=== PATIENT | female | born 1945 | race Caucasian/White ===

== ENCOUNTER → 2024-01-04 | Outpatient (CLI) | payer MEDICARE, OTHER ==
[2024-01-04 08:30] LABS: BASOPHILS ABSOLUTE AUTO 0.04 K/mm3 (0.00-0.23); BASOPHILS PERCENT AUTO 0 % (0-2); EOSINOPHILS PERCENT AUTO 2 % (0-6); Hematocrit 37.9 % (33.0-51.0); IMMATURE GRAN ABSOLUTE AUTO 0.07 K/mm3 (0.00-0.10); IMMATURE GRAN PERCENT AUTO 1 % (0-1); LYMPHOCYTES ABSOLUTE AUTO 0.95 K/mm3 (0.84-5.20); LYMPHOCYTES PERCENT AUTO 11 % (21-46); MONOCYTES ABSOLUTE AUTO 0.59 K/mm3 (0.16-1.47); MONOCYTES PERCENT AUTO 7 % (4-13); Mean Corpuscular HGB 27.4 pg (26.0-34.0); Mean Corpuscular HGB Conc 31.7 g/dL (31.5-36.5); Mean Corpuscular Volume 87 fL (80-100); NEUTROPHILS PERCENT AUTO 79 % (41-73); RDW Coefficient Variation 13.2 % (11.7-14.2); RDW Standard Deviation 41.2 fL (35.1-46.3); Red Blood Cell Count 4.38 M/mm3 (3.80-5.20); White Blood Cell Count 8.95 K/mm3 (4.00-11.30)
[2024-01-04 08:36] LABS: Albumin, Blood 3.2 g/dL (3.4-5.0); Albumin/Globulin Ratio 0.6 (0.8-1.8); Bilirubin, Total 0.4 mg/dL (0.1-1.0); Calcium, Blood 9.7 mg/dL (8.5-10.1); Potassium, Blood 4.5 mmol/L (3.5-5.5); Total Protein, Blood 8.2 g/dL (6.4-8.2)
[2024-01-04 08:51] LABS: Platelet Count 251 K/mm3 (150-400)
== END ==
LOC: LAB SHORT 08:20 → LAB 08:20
PROVIDERS: Physician Assistant
DX: I89.0 Lymphedema, not elsewhere classified (principal)
CPT/HCPCS: 80053; 85025

== ENCOUNTER 2024-02-02 20:51 | Inpatient (IN) | payer MEDICARE, OTHER ==
[~2024-02-02] VITALS: Ht 165.1 cm; Wt 147.4 kg
[2024-02-02 23:42] LABS: BASOPHILS ABSOLUTE AUTO 0.04 K/mm3 (0.00-0.23); BASOPHILS PERCENT AUTO 0 % (0-2); EOSINOPHILS PERCENT AUTO 0 % (0-6); Hematocrit 42.8 % (33.0-51.0); Hemoglobin 13.4 g/dL (11.5-16.0); IMMATURE GRAN ABSOLUTE AUTO 0.11 K/mm3 (0.00-0.10); IMMATURE GRAN PERCENT AUTO 1 % (0-1); LYMPHOCYTES ABSOLUTE AUTO 0.76 K/mm3 (0.84-5.20); LYMPHOCYTES PERCENT AUTO 3 % (21-46); MONOCYTES ABSOLUTE AUTO 0.43 K/mm3 (0.16-1.47); MONOCYTES PERCENT AUTO 2 % (4-13); Mean Corpuscular HGB 26.2 pg (26.0-34.0); Mean Corpuscular HGB Conc 31.3 g/dL (31.5-36.5); Mean Corpuscular Volume 84 fL (80-100); Mean Platelet Volume 10.4 fL (9.1-12.4); NEUTROPHILS ABSOLUTE AUTO 21.52 K/mm3 (1.96-9.15); NEUTROPHILS PERCENT AUTO 94 % (41-73); Platelet Count 396 K/mm3 (150-400); RDW Coefficient Variation 14.3 % (11.7-14.2); RDW Standard Deviation 43.3 fL (35.1-46.3); Red Blood Cell Count 5.12 M/mm3 (3.80-5.20); White Blood Cell Count 22.86 K/mm3 (4.00-11.30)
[2024-02-03] MEDS ORDERED: CefTRIAXone Sodium 1,000 MG in NS 100 ML IV ONE (00:10)
[2024-02-03] MEDS ORDERED: Vancomycin HCL 2,000 MG in NS 520 ML IV ONE (00:10)
[2024-02-03 00:12] LABS: Albumin, Blood 3.5 g/dL (3.4-5.0); Albumin/Globulin Ratio 0.6 (0.8-1.8); Bilirubin, Total 1.2 mg/dL (0.1-1.0); Bun/Creatinine Ratio 41.1 (12.0-20.0); Calcium, Blood 11.2 mg/dL (8.5-10.1); Creatinine, Blood 2.53 mg/dL (0.40-1.00); Globulin, Blood 6.2 g/dL (2.2-4.0); Potassium, Blood 5.8 mmol/L (3.5-5.5); Total Protein, Blood 9.7 g/dL (6.4-8.2)
[2024-02-03] MEDS ORDERED: OxyCODONE HCL 5 MG TAB PO PRN (01:40)
[2024-02-03] MEDS ORDERED: Acetaminophen 325 MG TABLET PO PRN (01:45)
[2024-02-03] MEDS ORDERED: FentaNYL Citrate 50 MCG/ML 2 ML Injection IV ONE (02:00)
[2024-02-03] MEDS ORDERED: NS 1,000 ML IV ONE (02:31)
[2024-02-03 02:59] VITALS: BP 131/57
[2024-02-03 03:05] LABS: Hemoglobin 11.7 g/dL (11.5-16.0); Mean Corpuscular HGB 26.8 pg (26.0-34.0); Mean Corpuscular HGB Conc 31.6 g/dL (31.5-36.5); Mean Corpuscular Volume 85 fL (80-100); Mean Platelet Volume 10.1 fL (9.1-12.4); Platelet Count 296 K/mm3 (150-400); RDW Coefficient Variation 14.3 % (11.7-14.2); RDW Standard Deviation 43.9 fL (35.1-46.3); Red Blood Cell Count 4.37 M/mm3 (3.80-5.20); White Blood Cell Count 19.65 K/mm3 (4.00-11.30)
[2024-02-03] MEDS ORDERED: NS 1,000 ML IV SCH (03:30)
[2024-02-03] MEDS ORDERED: Cefepime HCl 2,000 MG in NS 100 ML IV SCH (06:00)
[2024-02-03 07:32] VITALS: BP 124/60
[2024-02-03 08:44] LABS: Albumin, Blood 2.6 g/dL (3.4-5.0); Anion Gap 13 mmol/L (3-11); Blood Urea Nitrogen 98 mg/dL (8-24); Bun/Creatinine Ratio 53.6 (12.0-20.0); CO2, Blood 18 mmol/L (21-32); Calcium, Blood 9.7 mg/dL (8.5-10.1); Chloride, Blood 109 mmol/L (98-108); Creatinine, Blood 1.83 mg/dL (0.40-1.00); Glomerular Filtration Rate 28 (60-); Glucose, Blood 153 mg/dL (70-99); Phosphorus, Blood 3.8 mg/dL (2.5-4.9); Sodium, Blood 135 mmol/L (136-145)
[2024-02-03] MEDS ORDERED: Heparin Sodium,Porcine 5,000 UNIT/0.5 ML SDV SC SCH (09:00)
[2024-02-03] MEDS ORDERED: Lactobacil 2-S.Thermo-Bifido 1 1 Cap PO SCH (09:00)
[2024-02-03 14:05] LABS: Vancomycin, Random 17.5 ug/mL
[2024-02-03] MEDS ORDERED: Vancomycin HCL 2,000 MG in NS 500 ML IV ONE (14:20)
--- NOTE | 2024-02-03 15:01 | NUR ---
VISHNU CARTER FROM [facility] CALLED FOR UPDATE. PT UP TO CHAIR AND ALERT. HUNGRY AND EATING WITH GOOD APPETITE. PER EMMA, PT CANNOT BE DISCHARGED TO HOME TODAY SHE IS LEAVING FOR THE DAY BUT COULD COME BACK IN THE MORNING. THIS NURSE TO LET DR. LOZADA KNOW. BED IN LOW POSITON, CALL LIGHT WITHIN REACH. CHAIR ALARM ON. PT CALLING APPROPRIATELY.
[2024-02-03] MEDS ORDERED: CefTRIAXone Sodium 1,000 MG in NS 100 ML IV SCH (16:00)
[2024-02-03 16:43] VITALS: BP 118/67
--- NOTE | 2024-02-03 17:50 | NUR ---
SHIFT SUMMARY PT AXO X4, PLEASANT AND COOPERATIVE WITH CARE. PT UP TO CHAIR FOR LUNCH. LEGS HEATING ELEMENT WINDER PER DR LOZADA TO MONITOR FOR WEEPING. VERY LITTLE WEEPING THIS SHIFT. PT COMPLAINED OF PAIN, MEDICATED PER EMAR. PT SLEEPING COMFORTABLY AT THIS TIME. IV INFILTRATED WHILE INFUSING VANCO. PHARMACY NOTIFIED. THEY WOULD LIKE TO BE NOTIFIED WITH NEW IV IS PLACED SO THEY CAN RETIME NEXT DOSE. BED IN LOW POSITION, CALL LIGHT WITHIN REACH. PT STATES THAT SHE CANNOT FIND HER GLASSES. THIS NURSE LOOKED IN ROOM AND CANNOT FIND THEM. NOT IN PT'S PURSE. DR LOZADA GIVEN PT'S SPOUSES PHONE NUMBER TO CALL WITH UPDATES
[2024-02-03] MEDS ORDERED: BUME2 PO (17:51)
[2024-02-03] MEDS ORDERED: POTA10T PO (18:06)
[2024-02-03] MEDS ORDERED: PROPRANOLOL HCL80 MG PO (18:07)
[2024-02-03] MEDS ORDERED: BUPRENORPHIN-N1 EAC1 SL (18:08)
[2024-02-03] MEDS ORDERED: Ropinirole HCl0.5 MG PO (18:09)
[2024-02-03] MEDS ORDERED: ELIQUIS2.5 MG PO (18:10)
[2024-02-03] MEDS ORDERED: Buprenorphine HCL/Naloxone HCL 8MG-2MG Tab SL PRN (19:15)
[2024-02-03 19:34] VITALS: BP 106/55
--- NOTE | 2024-02-03 20:46 | NUR ---
2045: Vancomycin 2g infusion resumed into new PIV as directed by pharmacy.
[2024-02-03] MEDS ORDERED: Miconazole Nitrate 2% 85 GM PWD TOP SCH (21:00)
[2024-02-03] MEDS ORDERED: Apixaban 5 MG Tab PO SCH (21:00)
[2024-02-03] MEDS ORDERED: rOPINIRole HCl 1 MG Tab PO SCH (21:00)
[2024-02-04 04:26] VITALS: BP 122/57
--- NOTE | 2024-02-04 05:28 | NUR ---
Patient alert and oriented x3, resting comfortably in bed on room air. Purewick in place, collecting appropriately. Patient repositioned with two person assist overnight.
[2024-02-04 05:35] LABS: BASOPHILS ABSOLUTE AUTO 0.01 K/mm3 (0.00-0.23); BASOPHILS PERCENT AUTO 0 % (0-2); EOSINOPHILS ABSOLUTE AUTO 0.16 K/mm3 (0.00-0.68); EOSINOPHILS PERCENT AUTO 2 % (0-6); Hematocrit 33.5 % (33.0-51.0); Hemoglobin 10.2 g/dL (11.5-16.0); IMMATURE GRAN ABSOLUTE AUTO 0.03 K/mm3 (0.00-0.10); IMMATURE GRAN PERCENT AUTO 0 % (0-1); LYMPHOCYTES ABSOLUTE AUTO 0.69 K/mm3 (0.84-5.20); LYMPHOCYTES PERCENT AUTO 8 % (21-46); MONOCYTES ABSOLUTE AUTO 0.63 K/mm3 (0.16-1.47); MONOCYTES PERCENT AUTO 7 % (4-13); Mean Corpuscular HGB 26.2 pg (26.0-34.0); Mean Corpuscular HGB Conc 30.4 g/dL (31.5-36.5); Mean Corpuscular Volume 86 fL (80-100); Mean Platelet Volume 10.2 fL (9.1-12.4); NEUTROPHILS ABSOLUTE AUTO 7.44 K/mm3 (1.96-9.15); NEUTROPHILS PERCENT AUTO 83 % (41-73); Platelet Count 232 K/mm3 (150-400); RDW Coefficient Variation 14.5 % (11.7-14.2); RDW Standard Deviation 45.1 fL (35.1-46.3); White Blood Cell Count 8.96 K/mm3 (4.00-11.30)
[2024-02-04 05:58] LABS: Albumin, Blood 2.3 g/dL (3.4-5.0); Anion Gap 7 mmol/L (3-11); Blood Urea Nitrogen 65 mg/dL (8-24); Bun/Creatinine Ratio 62.5 (12.0-20.0); CO2, Blood 23 mmol/L (21-32); Calcium, Blood 9.9 mg/dL (8.5-10.1); Chloride, Blood 112 mmol/L (98-108); Creatinine, Blood 1.04 mg/dL (0.40-1.00); Glomerular Filtration Rate 55 (60-); Glucose, Blood 114 mg/dL (70-99); Magnesium, Blood 2.7 mg/dL (1.6-2.4); Phosphorus, Blood 3.3 mg/dL (2.5-4.9); Potassium, Blood 5.1 mmol/L (3.5-5.5); Sodium, Blood 137 mmol/L (136-145); Vancomycin, Random 28.6 ug/mL
[2024-02-04] MEDS ORDERED: Cefepime HCl 2,000 MG in NS 100 ML IV SCH (08:00)
[2024-02-04 08:14] VITALS: BP 119/60
[2024-02-04] MEDS ORDERED: Bumetanide 1 MG Tab PO SCH (09:00)
[2024-02-04] MEDS ORDERED: Petrolatum Ointment 5 gm TOP ONE (13:05)
[2024-02-04] MEDS ORDERED: PETROLATUM TOP SCH (13:33)
[2024-02-04] MEDS ORDERED: Petrolatum/Mineral Oil/Lanolin 1 APPLIC/50 GM Tube TOP SCH (13:48)
[2024-02-04] MEDS ORDERED: NS 100 ML IV ONE (15:53)
[2024-02-04] MEDS ORDERED: Silver Sulfadiazine 1% Cream 400 gm TOP ONE (16:40)
--- NOTE | 2024-02-04 18:31 | NUR ---
SHIFT SUMMARY: PATIENT WORKED WITH PT TODAY, SHE IS A 1 PERSON ASSIST WITH THE WALKER. C/O PAIN IN LOWER EXT. WOUND CARE PERFORMED. GIVING PAIN MEDICATIONS NEEDED; PATIENT PREFERS SUBOXONE VERESUS OTHER PAIN MEDICATION. SHE IS IN BED, EATING DINNER, CALL LIGHT WITHIN REACH, NO SIGNS OR SYMPTOMS OF DISTRESS, PLAN OF CARE ONGOING.
[2024-02-04 20:11] VITALS: BP 137/60
[2024-02-04] MEDS ORDERED: Silver Sulfadiazine 1% Cream 400 gm TOP SCH (21:00)
[2024-02-04] MEDS ORDERED: Petrolatum Ointment 5 gm TOP SCH (21:00)
[2024-02-05 04:00] VITALS: BP 136/55
--- NOTE | 2024-02-05 07:06 | NUR ---
NOC SHIFT SUMMARY WOUND CARE DONE PER MD ORDERS. LEGS ARE STILL OOZING, RED, AND SWOLLEN BUT WOUNDS ARE IMPROVED SINCE ORIGINAL PHOTOS WERE TAKEN.
[2024-02-05 07:41] VITALS: BP 129/59
[2024-02-05] MEDS ORDERED: FentaNYL Citrate 50 MCG/ML 2 ML Injection IV PRN (09:20)
[2024-02-05 15:55] VITALS: BP 117/68
--- NOTE | 2024-02-05 16:35 | NUR ---
NO ACUTE CHANGES THIS SHIFT. PT IS PLEASANT, ALERT AND ORIENTED X4. ABLE TO MAKE NEEDS KNOWN. TREATED PAIN PER EMAR. WOUNDS CLEANSED AND DRESSINGS REPLACED BLE. IV ANTIBIOTICS CONTINUED. PT UP TO CHAIR FOR LUNCH. 1-2 PERSON ASSIST TO BSC DUE TO WEAKNESS AND PAIN.
[2024-02-05] MEDS ORDERED: Vancomycin HCL 2,000 MG in NS 500 ML IV SCH (17:00)
[2024-02-05 20:27] VITALS: BP 134/74
[2024-02-06] MEDS ORDERED: NS 250 ML IV PRN (00:05)
[2024-02-06 06:37] VITALS: BP 124/51
--- NOTE | 2024-02-06 07:21 | NUR ---
END OF SHIFT SUMMARY PT A&OX4. PAIN TO BLE L>R, DECLINED PAIN MED UNTIL PRIOR TO DRESSING CHANGE THIS AM. PUREWICK CHANGED, DOYLE CARE PROVIDED. NO ACUTE EVENTS OVERNIGHT.
[2024-02-06 07:31] VITALS: BP 123/54
[2024-02-06 15:24] VITALS: BP 103/44
--- NOTE | 2024-02-06 18:05 | NUR ---
SHIFT SUMMARY PT AOX4, 1 ASSIST TO THE CHAIR OR BR WITH THE FWW. WOUND CARE DONE TO LOWER EXTREMITIES THIS SHIFT. PT MEDICATED FOR PAIN PER THE EMAR. NO ACUTE EVENTS. PG IS POSITIONAL. REPOSITIONED THROUGHOUT THE SHIFT. CALL LIGHT WITHIN REACH, BED LOCKED AND IN THE LOWEST POSITION. WILL REPORT TO ONCOMING NURSE.
[2024-02-06 19:31] VITALS: BP 111/60
[2024-02-07 05:53] VITALS: BP 153/74
[2024-02-07 06:23] LABS: BASOPHILS ABSOLUTE AUTO 0.02 K/mm3 (0.00-0.23); BASOPHILS PERCENT AUTO 0 % (0-2); EOSINOPHILS ABSOLUTE AUTO 0.28 K/mm3 (0.00-0.68); EOSINOPHILS PERCENT AUTO 5 % (0-6); Hematocrit 32.7 % (33.0-51.0); Hemoglobin 10.1 g/dL (11.5-16.0); IMMATURE GRAN ABSOLUTE AUTO 0.06 K/mm3 (0.00-0.10); IMMATURE GRAN PERCENT AUTO 1 % (0-1); LYMPHOCYTES ABSOLUTE AUTO 1.04 K/mm3 (0.84-5.20); LYMPHOCYTES PERCENT AUTO 17 % (21-46); MONOCYTES ABSOLUTE AUTO 0.68 K/mm3 (0.16-1.47); MONOCYTES PERCENT AUTO 11 % (4-13); Mean Corpuscular HGB 26.4 pg (26.0-34.0); Mean Corpuscular HGB Conc 30.9 g/dL (31.5-36.5); Mean Corpuscular Volume 86 fL (80-100); Mean Platelet Volume 9.9 fL (9.1-12.4); NEUTROPHILS ABSOLUTE AUTO 3.95 K/mm3 (1.96-9.15); NEUTROPHILS PERCENT AUTO 66 % (41-73); Platelet Count 183 K/mm3 (150-400); RDW Coefficient Variation 14.2 % (11.7-14.2); RDW Standard Deviation 44.3 fL (35.1-46.3); Red Blood Cell Count 3.82 M/mm3 (3.80-5.20); White Blood Cell Count 6.03 K/mm3 (4.00-11.30)
[2024-02-07 06:41] LABS: Albumin, Blood 2.1 g/dL (3.4-5.0); Anion Gap 8 mmol/L (3-11); Blood Urea Nitrogen 26 mg/dL (8-24); Bun/Creatinine Ratio 38.9 (12.0-20.0); CO2, Blood 25 mmol/L (21-32); Calcium, Blood 9.1 mg/dL (8.5-10.1); Chloride, Blood 111 mmol/L (98-108); Creatinine, Blood 0.67 mg/dL (0.40-1.00); Glomerular Filtration Rate 89 (60-); Glucose, Blood 109 mg/dL (70-99); Magnesium, Blood 2.1 mg/dL (1.6-2.4); Phosphorus, Blood 2.4 mg/dL (2.5-4.9); Potassium, Blood 4.4 mmol/L (3.5-5.5); Sodium, Blood 140 mmol/L (136-145)
--- NOTE | 2024-02-07 06:42 | NUR ---
NOC SHIFT SUMMARY DRESSING CHANGED AT 0600. PREMEDICATED WITH FENTANYL. PT TOLERATED WELL. LEGS LOOK MUCH BETTER THAN WHEN I DRESSED HER WOUNDS 2 DAYS AGO. LESS REDNESS, LESS SWELLING. LESS DRAINAGE.
[2024-02-07 07:37] VITALS: BP 115/62
[2024-02-07] MEDS ORDERED: Sodium Phosphate Mono/Dibasic 250 MG Tab PO ONE (09:45)
[2024-02-07 15:14] VITALS: BP 127/76
[2024-02-07 16:26] LABS: Vancomycin, Trough 15.7 ug/mL (5.0-10.0)
[2024-02-07] MEDS ORDERED: Dose Adjust by Pharmacy XX STA (16:35)
--- NOTE | 2024-02-07 16:49 | NUR ---
SHIFT SUMMARY PT AOX4, 1 ASSIST TO THE CHAIR OR BR. UP TO THE CHAIR FOR LUNCH. MEDICATED FOR PAIN PER THE EMAR. PLAN TO CHANGE THE DRESSING BEFORE THE SHIFT CHANGE. PG IS POSITIONAL BUT DOES DRAW. PT CALLS AND MAKES HER NEEDS KNOWN. REPOSITIONED THROUGHOUT THE SHIFT. CALL LIGHT WITHIN REACH, BED LOCKED AND IN THE LOWEST POSITION. WILL REPORT TO ONCOMING NURSE.
[2024-02-07 19:24] VITALS: BP 131/55
[2024-02-08 02:41] VITALS: BP 138/66
[2024-02-08 05:00] LABS: BASOPHILS ABSOLUTE AUTO 0.01 K/mm3 (0.00-0.23); BASOPHILS PERCENT AUTO 0 % (0-2); EOSINOPHILS ABSOLUTE AUTO 0.38 K/mm3 (0.00-0.68); EOSINOPHILS PERCENT AUTO 6 % (0-6); Hemoglobin 9.8 g/dL (11.5-16.0); IMMATURE GRAN ABSOLUTE AUTO 0.13 K/mm3 (0.00-0.10); IMMATURE GRAN PERCENT AUTO 2 % (0-1); LYMPHOCYTES ABSOLUTE AUTO 0.98 K/mm3 (0.84-5.20); LYMPHOCYTES PERCENT AUTO 15 % (21-46); MONOCYTES PERCENT AUTO 11 % (4-13); Mean Corpuscular HGB 26.3 pg (26.0-34.0); Mean Corpuscular HGB Conc 30.6 g/dL (31.5-36.5); Mean Corpuscular Volume 86 fL (80-100); NEUTROPHILS ABSOLUTE AUTO 4.24 K/mm3 (1.96-9.15); NEUTROPHILS PERCENT AUTO 66 % (41-73); Platelet Count 206 K/mm3 (150-400); RDW Coefficient Variation 14.2 % (11.7-14.2); RDW Standard Deviation 44.1 fL (35.1-46.3); Red Blood Cell Count 3.72 M/mm3 (3.80-5.20); White Blood Cell Count 6.44 K/mm3 (4.00-11.30)
[2024-02-08 05:20] LABS: Albumin, Blood 2.1 g/dL (3.4-5.0); Anion Gap 8 mmol/L (3-11); Blood Urea Nitrogen 22 mg/dL (8-24); CO2, Blood 25 mmol/L (21-32); Calcium, Blood 9.2 mg/dL (8.5-10.1); Chloride, Blood 109 mmol/L (98-108); Creatinine, Blood 0.67 mg/dL (0.40-1.00); Glomerular Filtration Rate 89 (60-); Glucose, Blood 115 mg/dL (70-99); Phosphorus, Blood 2.7 mg/dL (2.5-4.9); Potassium, Blood 4.4 mmol/L (3.5-5.5); Sodium, Blood 138 mmol/L (136-145)
--- NOTE | 2024-02-08 06:43 | NUR ---
MATHEMATICAL TECHNICIAN SUMMARY WOUND CARE DONE AT 0600. CLEANED WITH SALINE, DRIED, COVERED OPEN SPOTS WITH CALCIUM ALGINATE, APPLIED THICK LAYER OF AQUAPHOR TO INTACT SKIN, WRAPPED WITH CAST PADDING, AND YOLANDA WRAPPED. PT WAS PREMEDICATED WITH FENTANYL AND TOLERATED PROCEDURE WELL.
[2024-02-08 07:42] VITALS: BP 127/67
--- NOTE | 2024-02-08 12:37 | NUR ---
WOUND CARE NOTE: WOUND CARE COMPLETED PER PROVIDER ORDERS. PROVIDER AT THE BS TO WITNESS THE WOUND. NEW PICTURES OBTAINED AND PLACED IN THE CHART.
[2024-02-08] MEDS ORDERED: SILVADENE20 G1 TOP (14:23)
[2024-02-08] MEDS ORDERED: SULFAMETHOXAZO1 EAC1 PO (14:24)
[2024-02-08] MEDS ORDERED: OXAYDO5 M1 PO (14:25)
--- NOTE | 2024-02-08 17:58 | NUR ---
DISCHARGE NOTE PT DISCHARGED TO HOME, PICKED UP BY HER . PG REMOVED. DISCHARGE INFORMATION AND EDUCATION PROVIDED. MEDICATED FOR PAIN THIS SHIFT. MEDICATIONS FAXED TO THE PHARMACY OF HER CHOICE.
[2024-02-08] MEDS ORDERED: Amoxicillin/Clavulanate K 875 MG Tab PO SCH (21:00)
== END 2024-02-08 17:53 | disposition home health service (06) | DRG 872 ==
LOC: ER 20:51 → MEDS 02-03 01:38
PROVIDERS: Emergency Medicine; Family Medicine; Student in an Organized Health Care Education/Training Program; ADMIT Student in an Organized Health Care Education/Training Program
DX: A41.9 Sepsis, unspecified organism (principal); E87.20 Acidosis, unspecified; L03.116 Cellulitis of left lower limb; L03.115 Cellulitis of right lower limb; N17.9 Acute kidney failure, unspecified; D62 Acute posthemorrhagic anemia; Z68.43 Body mass index [BMI] 50.0-59.9, adult; L97.829 Non-pressure chronic ulcer of other part of left lower leg with unspecified severity; L97.819 Non-pressure chronic ulcer of other part of right lower leg with unspecified severity; E87.1 Hypo-osmolality and hyponatremia; R65.20 Severe sepsis without septic shock; E66.01 Morbid (severe) obesity due to excess calories; I89.0 Lymphedema, not elsewhere classified; I87.2 Venous insufficiency (chronic) (peripheral); T45.515A Adverse effect of anticoagulants, initial encounter; D64.89 Other specified anemias; E87.5 Hyperkalemia; R73.9 Hyperglycemia, unspecified; N18.31 Chronic kidney disease, stage 3a; Z22.322 Carrier or suspected carrier of Methicillin resistant Staphylococcus aureus; Z86.711 Personal history of pulmonary embolism
CPT/HCPCS: 36415; 71045; 80053; 80069; 80202; 83605; 83735; 83880; 84484; 85025; 85027; 87040; 93005; 93010; 94762; 96365; 96375; 97110; 97110-CQ; 97116; 97162; 97165; 97530; 97535; 99285-25; A9270; C1751; J0692; J0696; J1644; J3010; J3370; J7030; J7040; J7050

== ENCOUNTER 2024-03-17 10:19 | Inpatient (IN) | payer MEDICARE, OTHER ==
[~2024-03-17] VITALS: Ht 165.1 cm; Wt 129.0 kg
[~2024-03-17 10:19] MED LIST: BUME2 PO; BUPRENORPHIN-N1 EAC1 SL; ELIQUIS2.5 MG PO; OXAYDO5 M1 PO; POTA10T PO; PROPRANOLOL HCL80 MG PO; Ropinirole HCl0.5 MG PO; SILVADENE20 G1 TOP; SULFAMETHOXAZO1 EAC1 PO
[2024-03-17 11:35] LABS: BASOPHILS ABSOLUTE AUTO 0.03 K/mm3 (0.00-0.23); BASOPHILS PERCENT AUTO 0 % (0-2); EOSINOPHILS PERCENT AUTO 2 % (0-6); Hematocrit 36.8 % (33.0-51.0); Hemoglobin 11.8 g/dL (11.5-16.0); IMMATURE GRAN ABSOLUTE AUTO 0.11 K/mm3 (0.00-0.10); IMMATURE GRAN PERCENT AUTO 1 % (0-1); LYMPHOCYTES PERCENT AUTO 10 % (21-46); MONOCYTES ABSOLUTE AUTO 1.05 K/mm3 (0.16-1.47); MONOCYTES PERCENT AUTO 8 % (4-13); Mean Corpuscular HGB 26.3 pg (26.0-34.0); Mean Corpuscular HGB Conc 32.1 g/dL (31.5-36.5); Mean Corpuscular Volume 82 fL (80-100); Mean Platelet Volume 10.1 fL (9.1-12.4); NEUTROPHILS ABSOLUTE AUTO 10.65 K/mm3 (1.96-9.15); NEUTROPHILS PERCENT AUTO 80 % (41-73); Platelet Count 267 K/mm3 (150-400); RDW Coefficient Variation 14.9 % (11.7-14.2); RDW Standard Deviation 44.6 fL (35.1-46.3); Red Blood Cell Count 4.49 M/mm3 (3.80-5.20); White Blood Cell Count 13.34 K/mm3 (4.00-11.30)
[2024-03-17 11:49] LABS: C-REACTIVE PROTEIN, EXT RANGE 6.14 mg/dL (0.000-0.300)
[2024-03-17 11:57] LABS: Albumin/Globulin Ratio 0.5 (0.8-1.8); Bilirubin, Total 0.6 mg/dL (0.1-1.0); Bun/Creatinine Ratio 58.2 (12.0-20.0); Calcium, Blood 10.4 mg/dL (8.5-10.1); Creatinine, Blood 1.53 mg/dL (0.40-1.00); Globulin, Blood 5.7 g/dL (2.2-4.0); Potassium, Blood 6.1 mmol/L (3.5-5.5); Total Protein, Blood 8.7 g/dL (6.4-8.2)
[2024-03-17] MEDS ORDERED: Sodium Bicarb 8.4% 1 MEQ/ML 50 ML Vial IV ONE (12:10)
[2024-03-17] MEDS ORDERED: Calcium Gluconate 10% 100 MG/ML INJ IV ONE (12:10)
[2024-03-17] MEDS ORDERED: Insulin Regular 100 Unit/ML 1ML Dose IV ONE (12:10)
[2024-03-17] MEDS ORDERED: Albuterol 2.5 MG/3 ML VIAL INH SCH (12:10)
[2024-03-17] MEDS ORDERED: Dextrose 50% 50 ML Syringe IV ONE (12:10)
[2024-03-17] MEDS ORDERED: Cefepime HCl 2,000 MG in NS 100 ML IV ONE (12:25)
[2024-03-17] MEDS ORDERED: Dextrose 50% 50 ML Vial IV ONE (12:30)
[2024-03-17] MEDS ORDERED: NS 1,000 ML IV SCH (12:30)
[2024-03-17] MEDS ORDERED: Vancomycin HCL 2,500 MG in NS 500 ML IV ONE (12:55)
[2024-03-17 13:38] LABS: Calcium, Ionized (POC) 1.27 mmol/L (1.10-1.46); Chloride (POC) 99 mmol/L (98-108); Creatinine (POC) 1.7 mg/dL (0.6-1.0); Glucose (ISTAT POC) 215 mg/dL (70-99); Hemoglobin (POC) 11.2 g/dL (12.0-16.0); Potassium (POC) 5.2 mmol/L (3.5-5.5); Sodium (POC) 131 mmol/L (135-148); Total CO2 (POC) 23 mmol/L (21-32)
[2024-03-17 15:30] LABS: Bun/Creatinine Ratio 59.7 (12.0-20.0); Calcium, Blood 10.1 mg/dL (8.5-10.1); Creatinine, Blood 1.39 mg/dL (0.40-1.00); Potassium, Blood 4.7 mmol/L (3.5-5.5)
[2024-03-17 16:00] VITALS: BP 110/48
[2024-03-17] MEDS ORDERED: OxyCODONE HCL 5 MG TAB PO PRN (16:20)
[2024-03-17] MEDS ORDERED: DiphenhydrAMINE HCL 25 MG Cap PO ONE (16:20)
--- NOTE | 2024-03-17 17:01 | NUR ---
REPORT RECEIEVED VERIFIED PT A/O VSS IS AWAITING DISCHARGE REFUSED TO GET OUT OF BED AND STATED SHE WOULD LATER. MD INTO SEE PT AND DISCHARGE ORDERS GIVEN, VALERIE TO MERCHANDISE COLLECTOR AT 1300. 1130 DAUGHTER AT BEDSIDE WITH LUNCH AND WILL WAIT WITH PT. 1430 VALERIE HERE FOR PT. PT HAD NO ISSUES GETTING OUT OF BED TO BSC NOR WHEELCHAIR. PT DISCHARGED
--- NOTE | 2024-03-17 19:19 | NUR ---
report received verified. admit done, pt assisted to bed and pics were taken of multiple inflamed areas on body, purwic in place to protect skin in bobby area. iv access is limited so charge made aware of need for powerglide. pt very anxious and was assisted to edge of bed to stand, also was medicated for pain and irritation to legs. pt uses call light appropriatly.
[2024-03-17] MEDS ORDERED: NS 250 ML IV PRN (20:00)
[2024-03-17] MEDS ORDERED: Apixaban 5 MG Tab PO SCH (21:00)
[2024-03-17 21:34] VITALS: BP 116/55
[2024-03-17] MEDS ORDERED: Cefepime HCl 2,000 MG in NS 100 ML IV SCH (22:00)
[2024-03-18] MEDS ORDERED: FentaNYL Citrate 50 MCG/ML 2 ML Injection IV PRN (00:40)
[2024-03-18 02:59] VITALS: BP 142/63
--- NOTE | 2024-03-18 05:00 | NUR ---
SHIFT SUMMARY 79 YR F ADMITTED ON 03/17/24. FULL CODE. NO ACUTE CHANGES THIS SHIFT. PT C/O SEVERE PAIN IN BLE. PAIN MEDS IN EMAR WERE NOT AFFECTIVE SO HOSPITALIST WAS CONTACTED AND ORDER FOR FENTANYL WAS OBTAINED. PT STATES IT DID NOT HELP. SHE SAT ON THE EDGE OF THE BED MULTIPLE TIMES IN AN ATTEMPT TO ALLEVIATE THE PAIN IN HER LEGS. SHE STATED MULTIPLE TIMES THAT SHE JUST WANTS TO GO HOME. BLE ARE WEEPING AND THERE ARE NO WOUND CARE ORDERS. PUREWIK IN PLACE AND WORKED WELL THIS SHIFT. BED IN LOW POSITION AND CALL LIGHT IN REACH. WILL CONTINUE TO MONITOR.
[2024-03-18 07:22] VITALS: BP 101/73
[2024-03-18 08:31] LABS: BASOPHILS ABSOLUTE AUTO 0.04 K/mm3 (0.00-0.23); BASOPHILS PERCENT AUTO 0 % (0-2); EOSINOPHILS ABSOLUTE AUTO 0.01 K/mm3 (0.00-0.68); EOSINOPHILS PERCENT AUTO 0 % (0-6); Hematocrit 33.1 % (33.0-51.0); Hemoglobin 10.6 g/dL (11.5-16.0); IMMATURE GRAN ABSOLUTE AUTO 0.17 K/mm3 (0.00-0.10); IMMATURE GRAN PERCENT AUTO 1 % (0-1); LYMPHOCYTES ABSOLUTE AUTO 0.88 K/mm3 (0.84-5.20); LYMPHOCYTES PERCENT AUTO 4 % (21-46); MONOCYTES ABSOLUTE AUTO 0.84 K/mm3 (0.16-1.47); MONOCYTES PERCENT AUTO 4 % (4-13); Mean Corpuscular HGB 26.6 pg (26.0-34.0); Mean Corpuscular Volume 83 fL (80-100); Mean Platelet Volume 10.1 fL (9.1-12.4); NEUTROPHILS ABSOLUTE AUTO 18.67 K/mm3 (1.96-9.15); NEUTROPHILS PERCENT AUTO 91 % (41-73); Platelet Count 193 K/mm3 (150-400); RDW Coefficient Variation 15.2 % (11.7-14.2); RDW Standard Deviation 45.9 fL (35.1-46.3); Red Blood Cell Count 3.99 M/mm3 (3.80-5.20); White Blood Cell Count 20.61 K/mm3 (4.00-11.30)
[2024-03-18 08:36] LABS: Albumin, Blood 2.5 g/dL (3.4-5.0); Albumin/Globulin Ratio 0.5 (0.8-1.8); Bilirubin, Total 0.8 mg/dL (0.1-1.0); Calcium, Blood 9.8 mg/dL (8.5-10.1); Creatinine, Blood 1.15 mg/dL (0.40-1.00); Potassium, Blood 4.5 mmol/L (3.5-5.5); Total Protein, Blood 7.5 g/dL (6.4-8.2)
[2024-03-18 15:55] VITALS: BP 99/48
[2024-03-18] MEDS ORDERED: Vancomycin HCL 1,250 MG in NS 250 ML IV SCH (16:00)
--- NOTE | 2024-03-18 17:54 | NUR ---
NO ACUTE CHANGES, CEFEPIME AND VANCO INFUSED, ALERT AND ORIENTED TO ALL, CLEARLY MAKES NEEDS KNOWN, WORKED WITH PT/OT. ELLIOTT LEGS WEEPING, ELEVATED ON PILLOWS WHEN IN BED, OOB IN CHAIR FOR MEALS, FRIENDS VISITED TODAY. CALL LIGHT WITH IN REACH, WILL RELAY TO PM RN
[2024-03-18 20:34] VITALS: BP 124/88
[2024-03-19 04:50] VITALS: BP 122/63
[2024-03-19 06:04] LABS: BASOPHILS ABSOLUTE AUTO 0.03 K/mm3 (0.00-0.23); BASOPHILS PERCENT AUTO 0 % (0-2); EOSINOPHILS ABSOLUTE AUTO 0.29 K/mm3 (0.00-0.68); EOSINOPHILS PERCENT AUTO 4 % (0-6); Hematocrit 31.1 % (33.0-51.0); Hemoglobin 9.6 g/dL (11.5-16.0); IMMATURE GRAN ABSOLUTE AUTO 0.04 K/mm3 (0.00-0.10); IMMATURE GRAN PERCENT AUTO 1 % (0-1); LYMPHOCYTES ABSOLUTE AUTO 0.69 K/mm3 (0.84-5.20); LYMPHOCYTES PERCENT AUTO 9 % (21-46); MONOCYTES ABSOLUTE AUTO 0.56 K/mm3 (0.16-1.47); MONOCYTES PERCENT AUTO 7 % (4-13); Mean Corpuscular HGB 25.9 pg (26.0-34.0); Mean Corpuscular HGB Conc 30.9 g/dL (31.5-36.5); Mean Corpuscular Volume 84 fL (80-100); Mean Platelet Volume 10.3 fL (9.1-12.4); NEUTROPHILS ABSOLUTE AUTO 6.35 K/mm3 (1.96-9.15); NEUTROPHILS PERCENT AUTO 80 % (41-73); Platelet Count 166 K/mm3 (150-400); RDW Coefficient Variation 15.2 % (11.7-14.2); RDW Standard Deviation 46.5 fL (35.1-46.3); White Blood Cell Count 7.96 K/mm3 (4.00-11.30)
[2024-03-19 06:21] LABS: Bun/Creatinine Ratio 52.6 (12.0-20.0); Calcium, Blood 9.6 mg/dL (8.5-10.1); Creatinine, Blood 0.95 mg/dL (0.40-1.00); Potassium, Blood 4.2 mmol/L (3.5-5.5)
[2024-03-19 07:46] VITALS: BP 107/60
[2024-03-19] MEDS ORDERED: Cefepime HCl 2,000 MG in NS 100 ML IV SCH (08:00)
[2024-03-19 14:30] VITALS: BP 103/54
[2024-03-19 15:39] LABS: Vancomycin, Trough 21.5 ug/mL (5.0-10.0)
--- NOTE | 2024-03-19 18:20 | NUR ---
NO ACUTE CHANGES, ALERT AND OREINTED TO ALL, MEDICATED FOR PAIN THROUGH OUT THE DAY, CALL LIGHT WITH IN REACH, TELE DISCONTINUED TODAY, OOB FOR EACH MEAL, WORKED WITH PT TODAY, DENIES NAUSEA AND VOMITING. 98% ON RA, CALL LIGHT WITH IN REACH, WILL RELAY TO PM RN
[2024-03-19 19:44] VITALS: BP 116/60
[2024-03-19] MEDS ORDERED: Vancomycin HCL 1,000 MG in NS 250 ML IV SCH (22:00)
[2024-03-20 03:55] VITALS: BP 128/62
--- NOTE | 2024-03-20 04:35 | NUR ---
SHIFT SUMMARY: KATHERINE IS A&OX4. VSS, NO ACUTE EVENTS OVERNIGHT. SHE IS TOLERATING PO INTAKE WELL, REPORTS ADEQUATE PAIN CONTROL WITH MEDICATIONS PER MAR, AND USES THE CALL LIGHT APPROPRIATELY. DRESSINGS TO BLE C/D&I. IV TO RIGHT HAND PATENT, SALINE LOCKED. SHE IS A 1-2 PERSON ASSIST TO THE BEDSIDE RECLINER WITH THE FWW AND GAIT BELT. SHE IS LYING IN BED WITH THE CALL LIGHT IN REACH, BED IN LOWEST POSITION. SHE HAS RESTED QUIETLY WITH HER EYES CLOSED FOR THE MAJORITY OF THE SHIFT. WILL GIVE REPORT TO DAY SHIFT RN.
[2024-03-20 05:03] LABS: BASOPHILS ABSOLUTE AUTO 0.03 K/mm3 (0.00-0.23); BASOPHILS PERCENT AUTO 1 % (0-2); EOSINOPHILS ABSOLUTE AUTO 0.33 K/mm3 (0.00-0.68); EOSINOPHILS PERCENT AUTO 6 % (0-6); Hematocrit 30.1 % (33.0-51.0); Hemoglobin 9.1 g/dL (11.5-16.0); IMMATURE GRAN ABSOLUTE AUTO 0.03 K/mm3 (0.00-0.10); IMMATURE GRAN PERCENT AUTO 1 % (0-1); LYMPHOCYTES ABSOLUTE AUTO 0.91 K/mm3 (0.84-5.20); LYMPHOCYTES PERCENT AUTO 17 % (21-46); MONOCYTES ABSOLUTE AUTO 0.71 K/mm3 (0.16-1.47); MONOCYTES PERCENT AUTO 13 % (4-13); Mean Corpuscular HGB 25.7 pg (26.0-34.0); Mean Corpuscular HGB Conc 30.2 g/dL (31.5-36.5); Mean Corpuscular Volume 85 fL (80-100); Mean Platelet Volume 10.4 fL (9.1-12.4); NEUTROPHILS ABSOLUTE AUTO 3.37 K/mm3 (1.96-9.15); NEUTROPHILS PERCENT AUTO 63 % (41-73); Platelet Count 170 K/mm3 (150-400); RDW Coefficient Variation 15.1 % (11.7-14.2); RDW Standard Deviation 47.3 fL (35.1-46.3); Red Blood Cell Count 3.54 M/mm3 (3.80-5.20); White Blood Cell Count 5.38 K/mm3 (4.00-11.30)
[2024-03-20 05:33] LABS: Albumin/Globulin Ratio 0.4 (0.8-1.8); Bilirubin, Total 0.2 mg/dL (0.1-1.0); Bun/Creatinine Ratio 46.9 (12.0-20.0); Calcium, Blood 9.5 mg/dL (8.5-10.1); Creatinine, Blood 0.73 mg/dL (0.40-1.00); Globulin, Blood 4.5 g/dL (2.2-4.0); Potassium, Blood 4.4 mmol/L (3.5-5.5); Total Protein, Blood 6.5 g/dL (6.4-8.2)
[2024-03-20 07:22] VITALS: BP 124/55
--- NOTE | 2024-03-20 14:47 | NUR ---
PT BILATERAL LOWER EX. WOUND DRESSING CHANGED.
[2024-03-20 15:19] VITALS: BP 133/55
--- NOTE | 2024-03-20 17:40 | NUR ---
PT A&OX4 AND ANSWERS QUESTIONS APPROPRIATELY. PT IS EXPERIENCING HIGH LEVELS OF PAIN DUE TO BILATERAL LOWER EX. RANGING FROM 7-9 ON THE PAIIN SCALE. MEDICATE PER EMAR. PT RECEIVED SCHEDULED MEDICATIONS. PT RECEIVED BATH AND DRESSING CHANGE TODAY. VSS, NO COMPLAINTS OF CP/PRESSURE OR SOB. NO ACUTE EVENTS AT THIS TIME. PT LEFT IN A POSITION OF SAFETY WITH FALL PRECAUTIONS IN PLACE. PT REPOSITIONED WITH MINIMAL ASSISTANCE. CALL LIGHT IN REACH.
[2024-03-20 20:21] VITALS: BP 121/47
[2024-03-20] MEDS ORDERED: Vancomycin HCL 1,250 MG in NS 250 ML IV SCH (22:00)
[2024-03-21 04:00] VITALS: BP 143/60
[2024-03-21 05:36] LABS: BASOPHILS ABSOLUTE AUTO 0.04 K/mm3 (0.00-0.23); BASOPHILS PERCENT AUTO 1 % (0-2); EOSINOPHILS ABSOLUTE AUTO 0.35 K/mm3 (0.00-0.68); EOSINOPHILS PERCENT AUTO 5 % (0-6); Hematocrit 33.4 % (33.0-51.0); Hemoglobin 10.1 g/dL (11.5-16.0); IMMATURE GRAN ABSOLUTE AUTO 0.14 K/mm3 (0.00-0.10); IMMATURE GRAN PERCENT AUTO 2 % (0-1); LYMPHOCYTES ABSOLUTE AUTO 1.12 K/mm3 (0.84-5.20); LYMPHOCYTES PERCENT AUTO 15 % (21-46); MONOCYTES ABSOLUTE AUTO 0.64 K/mm3 (0.16-1.47); MONOCYTES PERCENT AUTO 9 % (4-13); Mean Corpuscular HGB Conc 30.2 g/dL (31.5-36.5); Mean Corpuscular Volume 86 fL (80-100); Mean Platelet Volume 10.3 fL (9.1-12.4); NEUTROPHILS ABSOLUTE AUTO 5.09 K/mm3 (1.96-9.15); NEUTROPHILS PERCENT AUTO 69 % (41-73); Platelet Count 193 K/mm3 (150-400); RDW Coefficient Variation 15.1 % (11.7-14.2); RDW Standard Deviation 47.4 fL (35.1-46.3); Red Blood Cell Count 3.88 M/mm3 (3.80-5.20); White Blood Cell Count 7.38 K/mm3 (4.00-11.30)
[2024-03-21 06:09] LABS: Bun/Creatinine Ratio 35.1 (12.0-20.0); Calcium, Blood 10.2 mg/dL (8.5-10.1); Creatinine, Blood 0.77 mg/dL (0.40-1.00); Potassium, Blood 4.6 mmol/L (3.5-5.5)
[2024-03-21 07:23] VITALS: BP 129/49
--- NOTE | 2024-03-21 07:44 | NUR ---
SHIFT SUMMARY PT IS A&OX4. VSS ON RA. C/O PAIN 10/10 IN HER BLE AND HIPS, MEDICATED PER EMAR WITH 5 MG PO OXYCODONE AND 50 MCG IV FENTANYL. PAIN THEN WENT DOWN TO AN 8/10. WHEN ASKED WHAT THE PT DOES AT HOME FOR HER PAIN SHE STATES SHE TAKES BUPRENORPHINE. PT HAS NOT RECEIVED HOME MEDICATIONS SINCE HER ADMIT. I RELAYED THIS TO DAY RN IN MORNING REPORT. TOLERATING A REGULAR DIET, AND ASKING FOR SNACKS. BLE DRESSINGS C/D/I. WICKING SYSTEM DRAINING LARGE AMOUNTS OF CLEAR, YELLOW URINE. NO BM THIS SHIFT. PT SAT UP IN RECLINER FOR A FEW HOURS LAST NIGHT. X1 ASSIST WITH FWW. BED IN LOWEST POSITION, CALL LIGHT WITHIN REACH.
[2024-03-21 14:29] VITALS: BP 134/64
[2024-03-21] MEDS ORDERED: Silver Sulfadiazine 1% Cream 25 APPLIC/25 GM Tube TOP SCH (16:35)
--- NOTE | 2024-03-21 19:26 | NUR ---
SHIFT SUMMARY PT IS A&O X3 AND ASSIST X2 WITH FWW. PT HAS WORKED WITH THERAPY THIS MORNING. BILAT LEG DSG CHANGED. PT HAS RECEIVED PRN PAIN MEDICATION THIS SHIFT D/T PAIN TO BILAT LEGS AND BACK. PT HAS VOICED CONCERN IN WANTED TO LEAVE LATE IN THE SHIFT. NOC HOSPITALIST NOTIFIED AND IS ON WAY UP TO SPEAK WITH PT. BILAT LEG DSG CHANGED THIS SHIFT.
[2024-03-21 19:45] VITALS: BP 117/75
[2024-03-21] MEDS ORDERED: HYDROmorphone HCl/Pf 1MG SYR IV ONE (20:00)
[2024-03-21] MEDS ORDERED: OxyCODONE HCL 5 MG TAB PO SCH (20:00)
[2024-03-21] MEDS ORDERED: rOPINIRole HCl 1 MG Tab PO SCH (21:00)
[2024-03-21 22:20] LABS: Vancomycin, Trough 15.3 ug/mL (5.0-10.0)
[2024-03-22] MEDS ORDERED: Piperacillin/Tazobactam Sod 3.375 GM in NS 100 ML IV SCH
[2024-03-22 05:20] VITALS: BP 112/50
[2024-03-22 07:59] VITALS: BP 105/49
--- NOTE | 2024-03-22 08:53 | NUR ---
SHIFT SUMMARY PT IS A&OX4. PT WANTING TO LEAVE AMA D/T NOT BEING MEDICATED WELL ENOUGH TO CONTROL HER PAIN. VSS ON RA. C/O PAIN 04/28 IN BLE, MEDICATED PER EMAR WITH SCHEDULED 5MG PO OXYCODONE Q4, ALSO ONE TIME DOSE OF 1MG IV DILAUDID. PT SITTING IN RECLINER AT BEGINNING OF SHIFT. PT WAS INCONTINENT OF BOWEL AND BLADDER WHILE SITTING IN THE CHAIR. PT DID NOT CALL TO USE BSC. CLEANED PT UP AND GOT HER BACK TO BED FOR THE NOC. BLE DRESSINGS C/D/I. PT INCONTINENT T/O NOC. PT HAS VERY EXCORIATED LABIAL FOLDS R/T BEING INCONTINENT. THIS RN REMINDED PT HOW IMPORTANT IT IS FOR HER SKIN TO GET UP TO BSC TO VOID. BED IN LOWEST POSITION, CALL LIGHT WITHIN REACH.
[2024-03-22] MEDS ORDERED: Propranolol HCL 80 MG CAPCR PO SCH (09:00)
[2024-03-22] MEDS ORDERED: Bumetanide 1 MG Tab PO SCH (09:00)
[2024-03-22 15:13] VITALS: BP 121/60
--- NOTE | 2024-03-22 18:04 | NUR ---
SHIFT SUMMARY PT CONT LEVEL OF CARE. PT REMAINS A&O X4 AND ASSIST X1 WITH FWW. PHYSICIAN ORDER A WOUND CULTURE TO PT BLE WOUNDS. CULTURE WAS COLLECTED AND SENT TO LAB AWAITING RESULTS. DSG CHANGED TO BILAT LEGS THIS SHIFT. PT WORKED WITH THERAPY THIS SHIFT. THERAPY STATED THAT THEY WOULD LIKE PT TO GET UP AND SIT IN CHAIR FOR AT LEAST ONE MEAL PER DAY. PT EDUCATED ON THERAPYS PLAN AND STATED THAT SHE COULD DO THAT. PT HAS UTILIZED BEDSIDE COMMODE THIS SHIFT. PHYSICIAN CHANGED IV ABT THIS SHIFT AND STATED THAT HE PLANS ON KEEPING PT FOR AT LEAST TWO MORE DAYS. PT NOTED TO CONT TO HAVE PAIN TO BLE AND HAS BEEN TX PER EMAR.
[2024-03-22 20:02] VITALS: BP 140/45
[2024-03-22 21:17] LABS: Vancomycin, Trough 16.8 ug/mL (5.0-10.0)
[2024-03-23 04:21] VITALS: BP 119/45
[2024-03-23 04:23] VITALS: BP 131/51
--- NOTE | 2024-03-23 07:51 | NUR ---
SHIFT SUMMARY PT IS A&OX4. NO ACUTE CHANGES OR EVENTS THIS SHIFT. VSS ON RA. MEDICATED FOR PAIN PER EMAR. TOLERATING A REGULAR DIET WITH 1800 ML FLUID RESTRICTION. BED IN LOWEST POSITION, CALL LIGHT WITHIN REACH. 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
[2024-03-23 08:16] VITALS: BP 146/72
[2024-03-23 15:19] VITALS: BP 159/72
--- NOTE | 2024-03-23 20:06 | NUR ---
SHIFT SUMMARY- PT ALERT AND ORIENTED TO SELF AND PLACE, CONFUSED AT TIMES. ANSWERS QUESTIONS APPROPRIATELY. PT IN BED WITH HER CALL LIGHT AT THE TIME OF SHIFT CHANGE. PT WAS TRANSFERED TO ROOM 306, WICH IS A LIFT ROOM AND THE PT IS A LIFT PT. PLAN IS FOR THE PT TO DC TO [facility], HOWEVER HER DC IS DELAYED D/T A POSSITIVE COVID TEST. REPORT COMPLETED WITH NIGHT RN. NO S&S OF DISTRESS AT THE TIME OF PT TRANSFER.
--- NOTE | 2024-03-23 20:10 | NUR ---
SHIFT SUMMARY- PT IS ALERT AND ORIENTED. SHE IS 2PA TO THE BS. PT HAS SEVERE PAIN IN HER BLE. DRESSINGS CHANGED THIS EVENING. DR LOPEZ WANTED THE PT SPOUSE TO DEMONSTRAIGHT THAT HE CAN CHANGE HER DRESSINGS. PT SPOUSE IS A DIALYSIS PT AND WAS FEELINIG SICK TODAY, SO HE DID NOT COME IN. THIS RN CHANGED THE DRESSING WITH THE ASSISTANCE FOR THE GARAGE DOOR TECHNICIAN AND A LIFT. THERE IS CONCERN TO IF HE CAN MANAGE THE DRESSING CHANGES THE PT NEEDS. PT TOLD STAFF SHE WAS GOING TO GET UP AND WALK OUT OF HERE. SHE WAS INFORMED THAT WOULD BE ILL ADVISED, BUT SHE CAN LEAVE AMA IF SHE WANTS TO. PT STATES SHE WAS JUST IN PAIN. SHE HAS SCHEDULED PAIN MEDS Q4. BEDSIDE REPORT COMPLETED WITH NIGHT RN. PT IN BED, CALL LIGHT IN REACH NO S&S OF DISTRESS NOTED.
[2024-03-23 20:48] VITALS: BP 122/46
[2024-03-23] MEDS ORDERED: Lactobacil 2-S.Thermo-Bifido 1 1 Cap PO SCH (21:00)
--- NOTE | 2024-03-24 04:12 | NUR ---
SHIFT SUMMARY NO ACUTE EVENTS DURING THIS SHIFT. PT HAS REDDENED SKIN UNDER BREASTS, GROIN, COCCYX, AND PANNUS SINCE ADMISSION. SKIN COLOR IMPROVING UNDER THE BREASTS SINCE ADMISSION. PT REPORTS VERY PAINFUL WHEN CLEANED/WIPED. POWDER APPLIED. THIS DIVERSITY MANAGER CALLED ON-CALL HOSPITALIST , T-ORDER RECEIVED FOR NYSTATIN POWDER, AND NYSTATIN CREAM Q8HRS. PT IS ON SCHEDULED PO ROXYCODONE 5MG, AND REPORTS EFFECTIVE FOR PAIN IN LE'S. LE'S OPEN TO AIR AND ELEVATED WITH PILLOWS. [id number] IN BED T/O THIS SHIFT. IV ABX INFUSED ORDERED. BED AT THE LOWEST POSITION, CALL LIGHT WITHIN REACH. PT ABLE TO MAKE HER NEEDS KNOWN.
[2024-03-24 04:22] VITALS: BP 124/58
--- NOTE | 2024-03-24 04:25 | NUR ---
NEW T-ORDER RECEIVED FROM ON-CALL HOSPITALIST : "NYSTATIN POWDER Q8HRS PRN." AND "NYSTATIN CREAM Q8HRS PRN." NO OTHER ORDERS AT THIS TIME.
[2024-03-24] MEDS ORDERED: Nystatin 100,000 Unit/GM CREAM 15 GM TOP PRN (05:40)
[2024-03-24] MEDS ORDERED: Miconazole Nitrate 2% 85 GM PWD TOP PRN (05:40)
[2024-03-24 08:04] VITALS: BP 133/54
[2024-03-24 08:39] LABS: Creatinine, Blood 0.77 mg/dL (0.40-1.00)
[2024-03-24 15:47] VITALS: BP 118/42
[2024-03-24 20:01] VITALS: BP 106/38
--- NOTE | 2024-03-24 20:20 | NUR ---
SHIFT SUMMARY- PT ALERT AND ORIENTED. PT GOT UP IN THE CHAIR TODAY AND WAS ABLE TO SIT UP FOR MOST OF THE DAY. DRESSING CHANGE COMPLETED THIS AFTERNOON. PT WILL REQUIRE DAILY DRESSING CHANGES WHEN SHE IS DISCHARGED. PT THOUGHT ABOUT IT AND DECIDED [facility] WHEN SHE IS READY TO DC. PT IS IN BED, CALL LIGHT IN REACH NO S&S OF DISTRESS NOTED AT THE TIME OF BEDSIDE REPORT. IV ABX INFUSING THROUGH THE LLEFT ARM PG.
[2024-03-25 03:52] VITALS: BP 140/58
--- NOTE | 2024-03-25 04:38 | NUR ---
SHIFT SUMMARY PATIENT HAD NO ACUTE CHANGES. AXOX 3 AND TWO ASSIST TO BSC. POWERGLIDE KACIE INTACT POSITIONAL. IV ABX INFUSED. DENIES CHEST PAIN, SOB, AND N/V. REPORTED BLE PAIN AND SHEDULE OXYCODONE GIVEN PER EMAR. NYSTATIN CREME APPLIED TO PANNUS AND FOLDS. DRESSING TO BLE INTACT. CALL LIGHT IN REACH. BED IN LOWEST POSITION. WILL CONTINUE TO MONITOR UNTIL DAY SHIFT NURSE ASSUMES CARE.
[2024-03-25 08:03] VITALS: BP 129/51
[2024-03-25] MEDS ORDERED: Silver Sulfadiazine 1% Cream 400 gm TOP SCH (09:00)
[2024-03-25] MEDS ORDERED: SULTRIDS PO (11:33)
--- NOTE | 2024-03-25 11:47 | NUR ---
WOUND CARE PERFORMED DAILY WOUND CARE COMPLETED. PT TOLLERATED THE WOUND CARE BETTER TODAY WHEN COMPARED TO YESTERDAY. DRESSINGS HAVE BEEN CHANGED DAILY BY THIS RN. THE WOUND BED APPEARS TO BE RED AND BEEFY. WOUND DRESSING REMOVED AND THE WOUND CLEANSED WITH STERILE WATER AND DRIED WITH GAUZE. PER EMAR APPLIED SILVADINE CREAM PLACED XEROFORM THEN ABD DRESSING, ROLLED GAUZE AND YOLANDA WRAP TO HOLD DRESSING. PT HAS PRN POWDER AND CREAM FOR THE RASHY AREAS. PT HAD A FULL SPOUNGE BATH (NOT INCLUDING HAIR) THEN THE PROBLEM AREAS WERE CLEANED AND DRIED. CREAM APPLIED TO THE MORE MOIST GROIN AREAS (SOME OPEN SPOTS) AND POWDER WAS USED FOR THE CLOSED AND MORE DRY RED AREAS UNDER THE BREASTS, AND LEG FOLDS. DR LOPEZ CAME TO SEEE THE PT WHILE THE DRESSING CHANGE WAS BEING COMPLETED. HE IS DISCHARGING THE PT TO SNF. PT HAS ACCEPTANCE AND BED ASSIGNMENT WAITING FOR A TRANSPORT TIME. WILL CALL REPORT TO [facility].
--- NOTE | 2024-03-25 14:29 | NUR ---
DISCHARGE NOTE- PT DISCHARGED TO [facility]. CALLED AND GAVE TELEPHONE REPORT TO THEM. PT WAS SENT WITH WOUND CARE SUPPLIES CLEARLY LABELED. PT WAS TAKEN VIA WC TRANSPORT TO . NO S&S OF DISTRESS NOTED AT THE TIME OF DISCHARGE.
== END 2024-03-25 14:15 | DRG 603 ==
LOC: ER 10:19 → MEDS 15:13 → ENPENDDIS 03-25 11:14 → MEDS 03-25 14:15
PROVIDERS: Physician Assistant; ADMIT Internal Medicine
DX: L03.115 Cellulitis of right lower limb (principal); Z16.29 Resistance to other single specified antibiotic; E87.1 Hypo-osmolality and hyponatremia; N17.9 Acute kidney failure, unspecified; E87.20 Acidosis, unspecified; L97.929 Non-pressure chronic ulcer of unspecified part of left lower leg with unspecified severity; L97.919 Non-pressure chronic ulcer of unspecified part of right lower leg with unspecified severity; Z68.43 Body mass index [BMI] 50.0-59.9, adult; L03.116 Cellulitis of left lower limb; I89.0 Lymphedema, not elsewhere classified; L98.8 Other specified disorders of the skin and subcutaneous tissue; E87.5 Hyperkalemia; N18.9 Chronic kidney disease, unspecified; I87.2 Venous insufficiency (chronic) (peripheral); E66.9 Obesity, unspecified; B95.62 Methicillin resistant Staphylococcus aureus infection as the cause of diseases classified elsewhere; Z86.711 Personal history of pulmonary embolism; Z79.01 Long term (current) use of anticoagulants
CPT/HCPCS: 36415; 80047; 80048; 80053; 80202; 82565; 83605; 83735; 84520; 85014; 85025; 86140; 87040; 87070; 87075; 87077; 87147; 87186; 87205; 93005; 93010; 94644; 94664; 96361; 96365; 96375; 97110; 97162; 97165; 97530; 97535; 99285-25; A9270; C1751; J0692; J1170; J1815; J2543; J3010; J3370; J7030; J7040; J7050; J7799

== ENCOUNTER 2024-06-23 10:17 | Day surgery (SDC) | payer MEDICARE, OTHER ==
[~2024-06-23 10:17] MED LIST changes: +SULTRIDS PO
== END 2024-06-23 23:00 | disposition home or self-care (01) ==
LOC: WOUND 10:17
DX: I89.0 Lymphedema, not elsewhere classified (principal); I87.313 Chronic venous hypertension (idiopathic) with ulcer of bilateral lower extremity; L97.812 Non-pressure chronic ulcer of other part of right lower leg with fat layer exposed; L97.822 Non-pressure chronic ulcer of other part of left lower leg with fat layer exposed; I87.2 Venous insufficiency (chronic) (peripheral); I73.9 Peripheral vascular disease, unspecified
CPT/HCPCS: G0463

== ENCOUNTER 2024-06-30 01:40 | Day surgery (SDC) | payer MEDICARE, OTHER | END 2024-06-30 23:00 | disposition home or self-care (01) | LOC: WOUND 01:40 | DX: I87.313 Chronic venous hypertension (idiopathic) with ulcer of bilateral lower extremity (principal); L97.812 Non-pressure chronic ulcer of other part of right lower leg with fat layer exposed; L97.822 Non-pressure chronic ulcer of other part of left lower leg with fat layer exposed; L97.222 Non-pressure chronic ulcer of left calf with fat layer exposed; I87.2 Venous insufficiency (chronic) (peripheral); I73.9 Peripheral vascular disease, unspecified; I89.0 Lymphedema, not elsewhere classified | CPT/HCPCS: G0463 ==

== ENCOUNTER 2024-07-06 05:03 | Day surgery (SDC) | payer MEDICARE, OTHER | END 2024-07-06 23:00 | disposition home or self-care (01) | LOC: WOUND 05:03 | DX: I87.313 Chronic venous hypertension (idiopathic) with ulcer of bilateral lower extremity (principal); L97.812 Non-pressure chronic ulcer of other part of right lower leg with fat layer exposed; L97.822 Non-pressure chronic ulcer of other part of left lower leg with fat layer exposed; I89.0 Lymphedema, not elsewhere classified; S81.802D Unspecified open wound, left lower leg, subsequent encounter; X58.XXXD Exposure to other specified factors, subsequent encounter; I87.2 Venous insufficiency (chronic) (peripheral); I73.9 Peripheral vascular disease, unspecified | CPT/HCPCS: G0463 ==

== ENCOUNTER 2024-07-19 14:06 | Inpatient (IN) | payer MEDICARE, OTHER ==
[~2024-07-19] VITALS: Ht 154.9 cm; Wt 138.0 kg
[2024-07-19 16:09] LABS: BASOPHILS ABSOLUTE AUTO 0.03 K/mm3 (0.00-0.23); BASOPHILS PERCENT AUTO 0 % (0-2); EOSINOPHILS ABSOLUTE AUTO 0.03 K/mm3 (0.00-0.68); EOSINOPHILS PERCENT AUTO 0 % (0-6); Hematocrit 42.9 % (33.0-51.0); Hemoglobin 13.1 g/dL (11.5-16.0); IMMATURE GRAN PERCENT AUTO 1 % (0-1); LYMPHOCYTES ABSOLUTE AUTO 1.17 K/mm3 (0.84-5.20); LYMPHOCYTES PERCENT AUTO 9 % (21-46); MONOCYTES ABSOLUTE AUTO 1.05 K/mm3 (0.16-1.47); MONOCYTES PERCENT AUTO 8 % (4-13); Mean Corpuscular HGB 24.9 pg (26.0-34.0); Mean Corpuscular HGB Conc 30.5 g/dL (31.5-36.5); Mean Corpuscular Volume 81 fL (80-100); Mean Platelet Volume 9.4 fL (9.1-12.4); NEUTROPHILS ABSOLUTE AUTO 10.29 K/mm3 (1.96-9.15); NEUTROPHILS PERCENT AUTO 81 % (41-73); Platelet Count 392 K/mm3 (150-400); RDW Coefficient Variation 14.7 % (11.7-14.2); Red Blood Cell Count 5.27 M/mm3 (3.80-5.20); White Blood Cell Count 12.67 K/mm3 (4.00-11.30)
[2024-07-19 16:43] LABS: Albumin, Blood 3.2 g/dL (3.4-5.0); Albumin/Globulin Ratio 0.5 (0.8-1.8); Bilirubin, Total 0.3 mg/dL (0.1-1.0); Bun/Creatinine Ratio 36.1 (12.0-20.0); Calcium, Blood 10.8 mg/dL (8.5-10.1); Creatinine, Blood 1.69 mg/dL (0.40-1.00); Globulin, Blood 6.2 g/dL (2.2-4.0); Potassium, Blood 5.4 mmol/L (3.5-5.5); Total Protein, Blood 9.4 g/dL (6.4-8.2)
[2024-07-19] MEDS ORDERED: Vancomycin HCL 2,000 MG in NS 520 ML IV ONE (19:35)
[2024-07-19] MEDS ORDERED: NS 1,000 ML IV SCH ×2 (19:35→21:00)
[2024-07-19] MEDS ORDERED: Ondansetron HCl 2 MG / ML 2ML Vial IV ONE (20:25)
[2024-07-19] MEDS ORDERED: FentaNYL Citrate 50 MCG/ML 2 ML Injection IV ONE (20:25)
[2024-07-19] MEDS ORDERED: FLU VACC TS2024-25(6MOS UP)/PF 45 MCG/0.5 ML SYRINGE IM SCH (20:30)
[2024-07-19] MEDS ORDERED: Acetaminophen 325 MG TABLET PO PRN (20:30)
[2024-07-19] MEDS ORDERED: Ondansetron HCl 2 MG / ML 2ML Vial IV PRN ×2 (20:30)
[2024-07-19] MEDS ORDERED: OxyCODONE HCL 5 MG TAB PO PRN (20:35)
[2024-07-19] MEDS ORDERED: Docusate Sodium 100 MG Cap PO SCH (21:00)
[2024-07-19] MEDS ORDERED: Apixaban 5 MG Tab PO SCH (21:00)
[2024-07-19] MEDS ORDERED: rOPINIRole HCl 1 MG Tab PO SCH (21:00)
[2024-07-19] MEDS ORDERED: Naloxone HCl 0.4MG / ML 1ML Vial IV PRN (21:45)
[2024-07-19] MEDS ORDERED: FentaNYL Citrate 50 MCG/ML 2 ML Injection IV PRN (21:50)
[2024-07-19] MEDS ORDERED: Buprenorphine HCL/Naloxone HCL 8MG-2MG Tab SL PRN (23:05)
[2024-07-19 23:52] VITALS: BP 151/55
[2024-07-19 23:55] VITALS: BP 111/76
[2024-07-20 00:02] VITALS: BP 82/44
[2024-07-20 00:04] VITALS: BP 111/76
[2024-07-20] MEDS ORDERED: NS 500 ML IV ONE (04:35)
[2024-07-20 05:47] LABS: BASOPHILS ABSOLUTE AUTO 0.02 K/mm3 (0.00-0.23); BASOPHILS PERCENT AUTO 0 % (0-2); EOSINOPHILS PERCENT AUTO 0 % (0-6); Hematocrit 31.7 % (33.0-51.0); Hemoglobin 9.8 g/dL (11.5-16.0); IMMATURE GRAN ABSOLUTE AUTO 0.06 K/mm3 (0.00-0.10); IMMATURE GRAN PERCENT AUTO 0 % (0-1); LYMPHOCYTES ABSOLUTE AUTO 0.27 K/mm3 (0.84-5.20); LYMPHOCYTES PERCENT AUTO 2 % (21-46); MONOCYTES PERCENT AUTO 4 % (4-13); Mean Corpuscular HGB 25.1 pg (26.0-34.0); Mean Corpuscular HGB Conc 30.9 g/dL (31.5-36.5); Mean Corpuscular Volume 81 fL (80-100); NEUTROPHILS ABSOLUTE AUTO 13.46 K/mm3 (1.96-9.15); NEUTROPHILS PERCENT AUTO 93 % (41-73); Platelet Count 325 K/mm3 (150-400); RDW Coefficient Variation 14.7 % (11.7-14.2); RDW Standard Deviation 43.4 fL (35.1-46.3); Red Blood Cell Count 3.91 M/mm3 (3.80-5.20); White Blood Cell Count 14.41 K/mm3 (4.00-11.30)
[2024-07-20 06:07] VITALS: BP 99/60
[2024-07-20 06:10] LABS: Magnesium, Blood 2.6 mg/dL (1.6-2.4)
[2024-07-20 06:24] LABS: BAND PERCENT MAN 1 % (0-8); BASOPHILS PERCENT MAN 0 % (0-2); EOSINOPHILS PERCENT MAN 0 % (0-6); LYMPHOCYTES ABSOLUTE MAN 0.14 K/mm3 (0.84-5.20); LYMPHOCYTES PERCENT MAN 1 % (21-46); METAMYELOCYTE ABSOLUTE MAN 0.28 K/mm3 (0.00-0.00); METAMYELOCYTE PERCENT MAN 2 % (0-0); MONOCYTES ABSOLUTE MAN 0.43 K/mm3 (0.16-1.47); MONOCYTES PERCENT MAN 3 % (4-13); NEUTROPHILS ABSOLUTE MAN 13.54 K/mm3 (1.96-9.15); SEG NEUTROPHILS PERCENT MAN 93 % (41-73); TOTAL CELLS COUNTED 100
[2024-07-20 06:34] LABS: Albumin, Blood 2.5 g/dL (3.4-5.0); Albumin/Globulin Ratio 0.6 (0.8-1.8); Bilirubin, Total 0.6 mg/dL (0.1-1.0); Bun/Creatinine Ratio 38.5 (12.0-20.0); Calcium, Blood 9.5 mg/dL (8.5-10.1); Creatinine, Blood 1.43 mg/dL (0.40-1.00); Globulin, Blood 4.5 g/dL (2.2-4.0); Potassium, Blood 4.8 mmol/L (3.5-5.5)
--- NOTE | 2024-07-20 06:49 | NUR ---
SHIFT SUMMARY PT ARRIVED 2324. ADMITTED FOR CELLULITIS OF BLE. 4+ PITTING EDEMA, WEEPING PROFUSLEY. PT ABLE TO AMBULATE WITH FWW AT BL. PT COMPLAINED OF PAIN. MEDICATED PER EMAR. DR. DALTON CALLED D/T PT NOT PERFUSING WELL, ELEVATED BP AND HR. 500ML BOLUS ORDERED AND LACTIC ACID ORDERED WITH MORNING LABS STAT. DR. DALTON TO FOLLOW UP WITH PT PENDING RESULTS OF BLOOD WORK. CONTINUING TO MONITOR. CALL LIGHT WITHIN REACH. WILL RELAY TO DAY SHIFT.
[2024-07-20] MEDS ORDERED: Potassium Chloride 10 Meq Tablet SA PO SCH (08:30)
[2024-07-20] MEDS ORDERED: Silver Sulfadiazine 1% Cream 25 APPLIC/25 GM Tube TOP SCH (09:00)
[2024-07-20] MEDS ORDERED: Miconazole Nitrate 2% 85 GM PWD TOP SCH (09:00)
[2024-07-20] MEDS ORDERED: Bumetanide 1 MG Tab PO SCH (09:00)
[2024-07-20 15:32] VITALS: BP 105/55
[2024-07-20] MEDS ORDERED: Bumetanide 0.25 MG/ML 4ML ViaL IV SCH (17:00)
--- NOTE | 2024-07-20 19:32 | NUR ---
REPORT RECEIVCED VERIFIED, A/O AND IN A LOT OF PAIN, LEGS VERY SWOLLEN WITH SIGNIFICANT DRAINAGE. SILVER SORB TO OPEN AREAS AND PT JORGE LUIS WELL. DR JONES AT BEDSIDE, PHOTOS TAKEN OF LEGS AND ABD FOLD AND WERE PLACED IN CHART, PT WAS ASSISTED TO BSC AND DID WELL BUT WAS IN A LOT OF PAIN. PURWIC WAS PLACED TO KEEP PT DRY AND PREVENT BREAKDOWN, PT AGAIN covered FOR PAIN. PT AWARE OF NEEDING TO MOVE AND TO KEEP NURTION UP FOR HEAL, PT FEED SELF DINNER AND WILL ATTEMPT TO GET OOB TOMORROW AND IN A CHAIR, CALL LIGHT WITHIN REACH. PT MAKES NEEDS KNOWN.
[2024-07-20] MEDS ORDERED: NS 250 ML IV PRN (19:50)
[2024-07-20] MEDS ORDERED: Vancomycin HCL 1,250 MG in NS 250 ML IV SCH (20:00)
[2024-07-20] MEDS ORDERED: Vancomycin HCL 1,000 MG in NS 250 ML IV SCH (20:00)
[2024-07-20] MEDS ORDERED: CefTRIAXone Sodium 1,000 MG in NS 100 ML IV SCH (21:00)
[2024-07-20 21:01] VITALS: BP 119/60
[2024-07-21 05:51] VITALS: BP 125/74
--- NOTE | 2024-07-21 06:56 | NUR ---
SHIFT SUMMARY AT START OF SHIFT, PT COMPLAINING OF PAIN IN BLE. PT HAS PUREWIC IN PLACE THIS SHIFT AND IS VOIDING CONSISTENTLY. BLE WEEPING PROFUSELY STILL. PT ABLE TO GET NYSTATIN POWDER APPLIED X2 TODAY. SILVER CREAM APPLIED TO LEGS. PT VANCO RUNNING IN EVENING. ROCEPHIN TO START AT COMPLETION OF VANCO ADMINISTRATION. PT MEDICATED FOR PAIN. 2214, PT WOKE AFTER HAVING DREAM SHE FELL OUT OF BED AND HAD BIT HER UPPER LIP ON THE RIGHT SIDE. PT UP TO [facility] APPROX 0600. ABLE TO VOID. BEDDING AND PAPER CHUX CHANGED. PT EXPRESSED DESIRE TO AMBULATE MORE OFTEN DURING THE DAY TODAY. PT MEDICATED FOR PAIN AND REPOSITIONED WITH EDEMATOUS EXTREMETIES RAISED ABOVE HEART LEVEL. PT'S GOLD RING ON LEFT HAND REMOVED WITH LUBRICANT AND STORED IN SPECIMIN CUP AND PLACED INTO PT'S PURSE.
[2024-07-21 08:24] VITALS: BP 119/55
[2024-07-21] MEDS ORDERED: Propranolol HCL 80 MG CAPCR PO SCH (09:00)
[2024-07-21 09:52] LABS: BASOPHILS ABSOLUTE AUTO 0.02 K/mm3 (0.00-0.23); BASOPHILS PERCENT AUTO 0 % (0-2); EOSINOPHILS ABSOLUTE AUTO 0.02 K/mm3 (0.00-0.68); EOSINOPHILS PERCENT AUTO 0 % (0-6); Hematocrit 32.1 % (33.0-51.0); IMMATURE GRAN ABSOLUTE AUTO 0.07 K/mm3 (0.00-0.10); IMMATURE GRAN PERCENT AUTO 1 % (0-1); LYMPHOCYTES ABSOLUTE AUTO 0.52 K/mm3 (0.84-5.20); LYMPHOCYTES PERCENT AUTO 4 % (21-46); MONOCYTES ABSOLUTE AUTO 0.73 K/mm3 (0.16-1.47); MONOCYTES PERCENT AUTO 5 % (4-13); Mean Corpuscular HGB 24.8 pg (26.0-34.0); Mean Corpuscular HGB Conc 31.2 g/dL (31.5-36.5); Mean Corpuscular Volume 80 fL (80-100); Mean Platelet Volume 9.5 fL (9.1-12.4); NEUTROPHILS ABSOLUTE AUTO 12.57 K/mm3 (1.96-9.15); NEUTROPHILS PERCENT AUTO 90 % (41-73); Platelet Count 352 K/mm3 (150-400); RDW Standard Deviation 43.8 fL (35.1-46.3); Red Blood Cell Count 4.03 M/mm3 (3.80-5.20); White Blood Cell Count 13.93 K/mm3 (4.00-11.30)
[2024-07-21 10:23] LABS: Albumin, Blood 2.3 g/dL (3.4-5.0); Albumin/Globulin Ratio 0.5 (0.8-1.8); Bilirubin, Total 0.3 mg/dL (0.1-1.0); Calcium, Blood 10.4 mg/dL (8.5-10.1); Creatinine, Blood 1.11 mg/dL (0.40-1.00); Globulin, Blood 5.1 g/dL (2.2-4.0); Potassium, Blood 4.3 mmol/L (3.5-5.5); Total Protein, Blood 7.4 g/dL (6.4-8.2)
[2024-07-21] MEDS ORDERED: Apixaban 5 MG Tab PO SCH (12:35)
[2024-07-21 15:52] VITALS: BP 95/55
[2024-07-21 17:30] VITALS: BP 103/54
--- NOTE | 2024-07-21 18:00 | NUR ---
SHIFT SUMMARY A/OX4, COOPERATIVE WITH CARE. REMAINING IN BED TODAY DUE TO SWELLING AND SIGNIFICANT PAIN TO BLE, HANDS, AND SHOULDERS. REPOSITIONED TOLERATED BY PT, Q2H. PT TREATED FOR PAIN PER EMAR WITH GOOD RESULTS, PT FOUND SLEEPING WHEN RN ENTERS TO REASSESS PAIN LEVELS. CARE TO BLE COMPLETED, SILVER SULFADIAZINE CREAM APPLIED AND LEGS WRAPPED. DIURESING CONTINUED PER MD ORDERS. FAIR ORAL INTAKE. PT CURRENTLY RESTING IN HOSPITAL BED WITH BED IN LOWEST POSITION AND CALL LIGHT WITHIN REACH.
[2024-07-21 19:28] VITALS: BP 102/47
[2024-07-21 19:58] LABS: Vancomycin, Trough 17.3 ug/mL (5.0-10.0)
[2024-07-22 04:30] VITALS: BP 90/54
[2024-07-22 05:56] LABS: BASOPHILS ABSOLUTE AUTO 0.01 K/mm3 (0.00-0.23); BASOPHILS PERCENT AUTO 0 % (0-2); EOSINOPHILS ABSOLUTE AUTO 0.19 K/mm3 (0.00-0.68); EOSINOPHILS PERCENT AUTO 2 % (0-6); Hematocrit 31.4 % (33.0-51.0); Hemoglobin 9.8 g/dL (11.5-16.0); IMMATURE GRAN ABSOLUTE AUTO 0.04 K/mm3 (0.00-0.10); IMMATURE GRAN PERCENT AUTO 1 % (0-1); LYMPHOCYTES ABSOLUTE AUTO 0.95 K/mm3 (0.84-5.20); LYMPHOCYTES PERCENT AUTO 11 % (21-46); MONOCYTES ABSOLUTE AUTO 0.62 K/mm3 (0.16-1.47); MONOCYTES PERCENT AUTO 7 % (4-13); Mean Corpuscular HGB Conc 31.2 g/dL (31.5-36.5); Mean Corpuscular Volume 80 fL (80-100); Mean Platelet Volume 9.5 fL (9.1-12.4); NEUTROPHILS ABSOLUTE AUTO 6.85 K/mm3 (1.96-9.15); NEUTROPHILS PERCENT AUTO 79 % (41-73); Platelet Count 334 K/mm3 (150-400); RDW Standard Deviation 43.8 fL (35.1-46.3); Red Blood Cell Count 3.92 M/mm3 (3.80-5.20); White Blood Cell Count 8.66 K/mm3 (4.00-11.30)
--- NOTE | 2024-07-22 06:07 | NUR ---
SHIFT SUMMARY PT ALERT AND ORIENTED TIMES 4. PT WAS RECEPTIVE TO CARE, TOOK HS MEDICATION AND IS APPROPRIATE WITH CALL LIGHT. PT ABLE TO MAKE NEEDS KNOWN. PT ADMITTED FOR CELLULITUS BILATERAL LOWER EXTREMITIES. PT HAS PUREWICK. PT TAKES FENT BED IN LOW POSITION, CALL LIGHT WITHIN REACH, RAILS TIMES 2.
[2024-07-22 06:21] LABS: Albumin, Blood 2.1 g/dL (3.4-5.0); Albumin/Globulin Ratio 0.5 (0.8-1.8); Bilirubin, Total 0.2 mg/dL (0.1-1.0); Bun/Creatinine Ratio 54.4 (12.0-20.0); Calcium, Blood 10.1 mg/dL (8.5-10.1); Creatinine, Blood 1.03 mg/dL (0.40-1.00); Globulin, Blood 4.5 g/dL (2.2-4.0); Potassium, Blood 3.9 mmol/L (3.5-5.5); Total Protein, Blood 6.6 g/dL (6.4-8.2)
[2024-07-22 08:23] VITALS: BP 109/70
--- NOTE | 2024-07-22 11:21 | NUR ---
TELE PLACED ON PT, NORMAL SINUS RHYTHM AT 89 BPM. CONTINUOUS PULSE OX PLACED ON PT, PT SAYING 98% ON 2 L/MIN VIA NC AT TIME OF PLACEMENT.
--- NOTE | 2024-07-22 15:23 | NUR ---
RN ATTEMPTED PHONE CALL TO PT PROVIDER RE UNCONTROLLED PAIN WITH CURRENT ORDERS. NO ANSWER, RN REQUESTED CALLBACK.
[2024-07-22 16:39] VITALS: BP 98/58
--- NOTE | 2024-07-22 16:59 | NUR ---
SHIFT SUMMARY PT REMAINS A/0X4, VSS, ABLE TO MAKE NEEDS KNOWN. GOOD APPETITE. PT REMAINING IN BED DUE TO UNCONTROLLED PAIN. RN ATTEMPTED TO CONTACT PROVIDER REGARDING PT PAIN, AWAITING RETURN CALL. NEW IV PLACED IN R HAND AND IV IN LEFT AC DC['C DUE TO LEAKING. CARE PROVIDED TO BLE PER ORDERS. PT MEDICATED PER EMAR FOR PAIN. BED BATH COMPLETED TODAY, PURWICK REMAINS IN PLACE. PT RESTING IN HOSPITAL BED WITH BED IN LOWEST POSITION AND CALL LIGHT WITHIN REACH. DAUGHTER AT BEDSIDE.
--- NOTE | 2024-07-22 17:29 | NUR ---
THIS RN CONTACTED PT PROVIDER VIA PHONE REGARDING UNCONTROLLED PAIN, NO NEW ORDERS RECIEVED.
[2024-07-22 19:50] VITALS: BP 113/56
[2024-07-23 04:01] VITALS: BP 125/50
--- NOTE | 2024-07-23 05:13 | NUR ---
SHIFT SUMMARY PT ALERT ORIENTED X4 ABLE TO VERBALIZE NEEDS REMAINS ON BEDREST REMAINS ON VANCO AND ROCEPHIN ORDERED FOR CELLULITIS OF LLE. VSS ON RA SATTING AT 97%. C/O GENERALIZED PAIN MEDICATED WITH FENTANYL AND OXY ORDERED FOR PAIN SHE HAS A ORDER FOR A ECHO TO BE DONE TODAY. SHES KEPT TURNED AND REPOSITIONED BY STAFF [place] INTACT DRAINING YELLOW URINE. HER BLE REMAIN RED AND LT ONE HAS DRAINAGE. CONTINUES WITH SILVADENE CREAM TO AREA. BLE REMAIN VERY EDEMATOUS. SHES IN BED AT THIS TIME WITH CALL LIGHT IN REACH
[2024-07-23 07:53] VITALS: BP 136/59
--- NOTE | 2024-07-23 08:28 | NUR ---
pt laying in bed moaning, sleepy, states she has 10/10 pain in legs and back, a/ox4, cooperative with care, follows commands well, lungs are clear, dim in bases, resp even and unlabored, on r/a, no cough noted, hrr, 4+ edema noted to b/l le, cap refill <3 sec, vs stable, afebrile, piv to r hand, site is clear and patent, btx4, reports reg bm's, purwick in place for urine, skin has scabs and redness to b/l le, maew, very weak, hands shake, jayla, call light in reach.
[2024-07-23 09:35] LABS: BASOPHILS ABSOLUTE AUTO 0.04 K/mm3 (0.00-0.23); BASOPHILS PERCENT AUTO 0 % (0-2); EOSINOPHILS ABSOLUTE AUTO 0.49 K/mm3 (0.00-0.68); EOSINOPHILS PERCENT AUTO 5 % (0-6); Hematocrit 37.2 % (33.0-51.0); Hemoglobin 11.5 g/dL (11.5-16.0); IMMATURE GRAN ABSOLUTE AUTO 0.06 K/mm3 (0.00-0.10); IMMATURE GRAN PERCENT AUTO 1 % (0-1); LYMPHOCYTES ABSOLUTE AUTO 1.19 K/mm3 (0.84-5.20); LYMPHOCYTES PERCENT AUTO 11 % (21-46); MONOCYTES ABSOLUTE AUTO 0.55 K/mm3 (0.16-1.47); MONOCYTES PERCENT AUTO 5 % (4-13); Mean Corpuscular HGB 24.7 pg (26.0-34.0); Mean Corpuscular HGB Conc 30.9 g/dL (31.5-36.5); Mean Corpuscular Volume 80 fL (80-100); Mean Platelet Volume 9.3 fL (9.1-12.4); NEUTROPHILS ABSOLUTE AUTO 8.27 K/mm3 (1.96-9.15); NEUTROPHILS PERCENT AUTO 78 % (41-73); Platelet Count 448 K/mm3 (150-400); RDW Coefficient Variation 14.9 % (11.7-14.2); RDW Standard Deviation 43.5 fL (35.1-46.3); Red Blood Cell Count 4.66 M/mm3 (3.80-5.20)
[2024-07-23 09:55] LABS: Albumin, Blood 2.4 g/dL (3.4-5.0); Albumin/Globulin Ratio 0.4 (0.8-1.8); Bilirubin, Total 0.3 mg/dL (0.1-1.0); Bun/Creatinine Ratio 52.1 (12.0-20.0); Calcium, Blood 9.9 mg/dL (8.5-10.1); Creatinine, Blood 0.81 mg/dL (0.40-1.00); Globulin, Blood 5.5 g/dL (2.2-4.0); Potassium, Blood 4.2 mmol/L (3.5-5.5); Total Protein, Blood 7.9 g/dL (6.4-8.2)
[2024-07-23 15:38] VITALS: BP 146/79
--- NOTE | 2024-07-23 19:14 | NUR ---
pt got to chair for short time this am with therapy, did not tolerate well, took two people to stand her up to return to bed, has been resting most of the day, no further changes this shift. call light in reach.
[2024-07-23 19:37] LABS: Vancomycin, Trough 14.6 ug/mL (5.0-10.0)
[2024-07-23 20:25] VITALS: BP 114/56
[2024-07-24 05:08] VITALS: BP 113/59
[2024-07-24 05:55] LABS: BASOPHILS ABSOLUTE AUTO 0.01 K/mm3 (0.00-0.23); BASOPHILS PERCENT AUTO 0 % (0-2); EOSINOPHILS ABSOLUTE AUTO 0.35 K/mm3 (0.00-0.68); EOSINOPHILS PERCENT AUTO 6 % (0-6); Hematocrit 30.4 % (33.0-51.0); Hemoglobin 9.3 g/dL (11.5-16.0); IMMATURE GRAN ABSOLUTE AUTO 0.05 K/mm3 (0.00-0.10); IMMATURE GRAN PERCENT AUTO 1 % (0-1); LYMPHOCYTES ABSOLUTE AUTO 0.94 K/mm3 (0.84-5.20); LYMPHOCYTES PERCENT AUTO 15 % (21-46); MONOCYTES ABSOLUTE AUTO 0.51 K/mm3 (0.16-1.47); MONOCYTES PERCENT AUTO 8 % (4-13); Mean Corpuscular HGB 24.5 pg (26.0-34.0); Mean Corpuscular HGB Conc 30.6 g/dL (31.5-36.5); Mean Corpuscular Volume 80 fL (80-100); Mean Platelet Volume 9.2 fL (9.1-12.4); NEUTROPHILS ABSOLUTE AUTO 4.29 K/mm3 (1.96-9.15); NEUTROPHILS PERCENT AUTO 70 % (41-73); Platelet Count 331 K/mm3 (150-400); RDW Coefficient Variation 14.9 % (11.7-14.2); RDW Standard Deviation 43.9 fL (35.1-46.3); Red Blood Cell Count 3.79 M/mm3 (3.80-5.20); White Blood Cell Count 6.15 K/mm3 (4.00-11.30)
[2024-07-24 06:20] LABS: Albumin, Blood 1.9 g/dL (3.4-5.0); Albumin/Globulin Ratio 0.4 (0.8-1.8); Bilirubin, Total 0.2 mg/dL (0.1-1.0); Bun/Creatinine Ratio 47.8 (12.0-20.0); Calcium, Blood 9.3 mg/dL (8.5-10.1); Creatinine, Blood 0.73 mg/dL (0.40-1.00); Globulin, Blood 4.5 g/dL (2.2-4.0); Potassium, Blood 3.9 mmol/L (3.5-5.5); Total Protein, Blood 6.4 g/dL (6.4-8.2)
[2024-07-24 07:36] VITALS: BP 111/52
[2024-07-24] MEDS ORDERED: Bumetanide 1 MG Tab PO SCH (09:00)
--- NOTE | 2024-07-24 09:00 | NUR ---
pt laying in bed awake a/ox4, cooperative with care, follows commands well, denies pain this am, lungs are clear in upper fieldsd, dim in bases, resp even and unlabored, no cough noted, hrr, 4+ edema noted to b/l yaz, left worse, with cellulitis, sores from knees down, piv to r hand, site is clear and patent, btx4, abd flat soft nontender, voids via purwick at this time, skin has wounds to b/l margarette mukherjee perla, call light in reach.
[2024-07-24 15:26] VITALS: BP 110/55
--- NOTE | 2024-07-24 17:09 | NUR ---
Pt arrived to 335 via jennifer from ED, mom in attendence, pt is able to stand and transfer herself to bed indep, a/ox4, pleasant and cooperative with care, follows commands well, denies pain at this time, is feeling much improved since coming to hosp, lungs are clear t/o, resp even and unlabored at rest, on r/a, no cough noted, hrr, bounding, stated pp are usually found via doppler, btx4, abd flat soft nontender, voids without diff, skin c/w/d, margarette, jayla, oriented to room layout and call system, call light in reach.
--- NOTE | 2024-07-24 18:15 | NUR ---
pt has slept most of the day, no acute changes this shift, medicated for pain once, plan is for snf when ready for discharge, call light in reach.
[2024-07-24 19:56] VITALS: BP 105/40
[2024-07-25 04:24] VITALS: BP 125/52
[2024-07-25 07:13] VITALS: BP 104/45
--- NOTE | 2024-07-25 14:00 | NUR ---
WOUND CARE DRESSINGS CHANGED TO BILAT LOWER EXTREMITIES. WOUNDS CLEANED, APPLIED SIVER SULFADIAZINE, AND COVERED WITH NONADHERENT DRESSING AND GAUZE. MICONAZOLE POWDER APPLIED TO ABDOMINAL FOLDS.
[2024-07-25 15:58] VITALS: BP 119/58
--- NOTE | 2024-07-25 16:26 | NUR ---
PT IS A/OX4. BEDREST AT THIS TIME. BILAT LOWER EXTREMITY CELLULITIS, PAINFUL WITH MOVEMENT. LEF LEG MORE PAINFUL WITH OPEN WOUNDS THAN RIGHT LEG. DRESSINGS CHANGED THIS AFTERNOON. MICONAZOLE POWDER APPLIED TO ABDOMINAL FOLDS. PURWICK IN PLACE, CHANGED THIS AFTERNOON, AND DRAINING CLEAR, YELLOE URINE. ON RA, NO TELE. POSSIBLE DISCHARGE TO SNF TOMORROW, PT REQUESTING [facility].
[2024-07-25 19:21] VITALS: BP 117/49
[2024-07-25] MEDS ORDERED: Doxycycline Hyclate 100 MG TAB PO SCH (22:20)
[2024-07-26 02:13] VITALS: BP 121/47
[2024-07-26 06:11] LABS: BASOPHILS ABSOLUTE AUTO 0.02 K/mm3 (0.00-0.23); BASOPHILS PERCENT AUTO 0 % (0-2); EOSINOPHILS ABSOLUTE AUTO 0.39 K/mm3 (0.00-0.68); EOSINOPHILS PERCENT AUTO 7 % (0-6); Hematocrit 33.1 % (33.0-51.0); Hemoglobin 9.9 g/dL (11.5-16.0); IMMATURE GRAN PERCENT AUTO 2 % (0-1); LYMPHOCYTES ABSOLUTE AUTO 1.08 K/mm3 (0.84-5.20); LYMPHOCYTES PERCENT AUTO 19 % (21-46); MONOCYTES ABSOLUTE AUTO 0.45 K/mm3 (0.16-1.47); MONOCYTES PERCENT AUTO 8 % (4-13); Mean Corpuscular HGB 24.4 pg (26.0-34.0); Mean Corpuscular HGB Conc 29.9 g/dL (31.5-36.5); Mean Corpuscular Volume 82 fL (80-100); Mean Platelet Volume 8.9 fL (9.1-12.4); NEUTROPHILS ABSOLUTE AUTO 3.77 K/mm3 (1.96-9.15); NEUTROPHILS PERCENT AUTO 65 % (41-73); Platelet Count 306 K/mm3 (150-400); RDW Coefficient Variation 14.8 % (11.7-14.2); RDW Standard Deviation 44.8 fL (35.1-46.3); Red Blood Cell Count 4.05 M/mm3 (3.80-5.20); White Blood Cell Count 5.81 K/mm3 (4.00-11.30)
[2024-07-26 06:36] LABS: Albumin/Globulin Ratio 0.5 (0.8-1.8); Bilirubin, Total 0.2 mg/dL (0.1-1.0); Bun/Creatinine Ratio 37.4 (12.0-20.0); Calcium, Blood 9.3 mg/dL (8.5-10.1); Creatinine, Blood 0.64 mg/dL (0.40-1.00); Globulin, Blood 4.4 g/dL (2.2-4.0); Potassium, Blood 3.9 mmol/L (3.5-5.5); Total Protein, Blood 6.4 g/dL (6.4-8.2)
--- NOTE | 2024-07-26 06:45 | NUR ---
WATER AND FIRE TECHNICIAN SUMMARY PTS IV OCCLUDED AT START OF SHIFT. SHE HAD IV VANCOMYCIN AND IV CEFTRIAXONE DUE AT 1999 AND AFTER SEVERAL ATTEMPTS AT RESTARTING HER IV I CONTACTED THE DOCTOR BECAUSE OUR ONLY OPTION WAS GOING TO BE STARTING A [id number] OR SWITCHING HER OVER TO ORAL ANTIBIOTICS. SHE IS GOING TO BE DISCHARGING TODAY OR TOMORROW SO DR DALTON SAID IT WOULD BE OK TO LEAVE OUT HER IV AND START HER ON ORAL ANTIBIOTICS. I WENT IN HER ROOM AT 0600 TO DO HER MORNING DRESSING CHANGE AND CLEAN HER LEGS BUT SHE SAID THAT THE DOCTOR WANTS TO SEE HER LEGS WHEN WE DO HER DRESSING CHANGE THIS MORNING SO WE WILL HOLD OFF UNTIL THE DOCTOR IS HERE AND IS AVAILABLE TO SEE HER LEGS.
[2024-07-26 07:27] VITALS: BP 126/53
[2024-07-26 16:56] VITALS: BP 133/59
--- NOTE | 2024-07-26 17:37 | NUR ---
SHIFT SUMMARY PT IS A/OX4. DRESSINGS CHANGED THIS EVENING. CLEANED WITH WOUND CLEANSER AND COVERED WITH NONADHERENT DRESSING AND WRAPPED WITH GAUZE. LEFT LEG MORE SEEPING AND BLEEDING THAN ON THE RIGHT SIDE. PT MEDICATED WITH X1 OXYCODONE THIS SHIFT PER SEP. PURWICK IN PLACE DRAINING CLEAR, YELLOW URINE. PT CONT/INCONT OF BOWELS AND BLADDER. ATTENDS IN PLACE AND CHANGED NEEDED. PT WORKED WITH PHYSCIAL THERAPY THIS AFTERNOON. PT UP IN CHAIR THIS AFTERNOON FOR ABOUT 1.5 HOURS. PT DAUGHTER VISITED THIS EVENING.
[2024-07-26 19:55] VITALS: BP 120/50
[2024-07-27 05:32] VITALS: BP 116/60
--- NOTE | 2024-07-27 06:02 | NUR ---
DYE TANK TENDER SUMMARY NO ACUTE OVERNIGHT EVENTS. PLAN FOR PICC PLACEMENT TODAY AND THEN DISCHARGE TO SNF FOR 10 DAYS OF IV ABX
[2024-07-27 07:20] VITALS: BP 140/49
[2024-07-27] MEDS ORDERED: MICO100S TOP (12:13)
--- NOTE | 2024-07-27 13:39 | NUR ---
DRESSING CHANGED TO BILAT LE 1100. FIRST CLEANSED WITH NS WOUND CLEANSER, PAT DRY, APPLIED SSD SATURATED GAUZE TO DEEPER AREAS OF LLE, ABD, KERLEX BAND NET. RLE HAD ONE AREA REDDENED POST 2X3CM, APPLIED SM AMOUNT OF XEREFORM, SCANT DRAINAGE. MEDICATED WITH FENT 50MCG IV BEFORE PROCEDURE. HANDLED DRESSING CHANGE FAIR. CLEANSED ALL FOLDS, APPLIED MICONAZOLE POWDER AND ZINC CREAM TO OPEN AREAS.
--- NOTE | 2024-07-27 13:43 | NUR ---
PT DISCHARGED TO [facility]. CALLED RN [phone] TO GIVE HER REPORT. MEDICATED WITH OXYCODINE FOR BLE PAIN BEFORE DC. WRITTEN SCRIPT SENT WITH PT IN [place].
== END 2024-07-27 13:09 | DRG 872 ==
LOC: ER 14:06 → MEDS 14:07 → ERHOLD 14:07 → MEDS 23:18 → ENPENDDIS 07-27 12:53 → MEDS 07-27 13:09
PROVIDERS: Family Medicine; Internal Medicine; Pharmacist; Physician Assistant; ADMIT Student in an Organized Health Care Education/Training Program
PROC: 3E03329 Introduction of Other Anti-infective into Peripheral Vein, Percutaneous Approach (ICD-10-PCS; principal; 2024-07-19)
PROC: 3E033XZ Introduction of Vasopressor into Peripheral Vein, Percutaneous Approach (ICD-10-PCS; 2024-07-19)
PROC: 02HV33Z Insertion of Infusion Device into Superior Vena Cava, Percutaneous Approach (ICD-10-PCS; 2024-07-27)
DX: A41.9 Sepsis, unspecified organism (principal); Z68.43 Body mass index [BMI] 50.0-59.9, adult; L03.116 Cellulitis of left lower limb; E87.1 Hypo-osmolality and hyponatremia; L03.115 Cellulitis of right lower limb; N17.9 Acute kidney failure, unspecified; L97.229 Non-pressure chronic ulcer of left calf with unspecified severity; E66.01 Morbid (severe) obesity due to excess calories; I87.8 Other specified disorders of veins; I89.0 Lymphedema, not elsewhere classified; E87.5 Hyperkalemia; E11.65 Type 2 diabetes mellitus with hyperglycemia; I87.2 Venous insufficiency (chronic) (peripheral); G43.909 Migraine, unspecified, not intractable, without status migrainosus; G89.4 Chronic pain syndrome; Z79.01 Long term (current) use of anticoagulants; Z79.899 Other long term (current) drug therapy; Z86.14 Personal history of Methicillin resistant Staphylococcus aureus infection; G25.81 Restless legs syndrome; Z86.711 Personal history of pulmonary embolism
CPT/HCPCS: 36415; 36569; 80053; 80202; 82330; 82565; 83036; 83605; 83735; 83930; 85025; 93306; 94760; 94762; 96365; 96366; 96375; 96376; 97110; 97161; 97530; 99284-25; A9270; C1751; G0378; J0696; J3010; J3370; J7030; J7040; J7050

== ENCOUNTER 2024-11-11 15:57 | Emergency (ER) | payer MEDICARE, OTHER ==
[~2024-11-11] VITALS: Ht 165.1 cm; Wt 136.1 kg
[~2024-11-11 15:57] MED LIST changes: +MICO100S TOP
[2024-11-11 17:27] LABS: BASOPHILS ABSOLUTE AUTO 0.01 K/mm3 (0.00-0.23); BASOPHILS PERCENT AUTO 0 % (0-2); EOSINOPHILS ABSOLUTE AUTO 0.19 K/mm3 (0.00-0.68); EOSINOPHILS PERCENT AUTO 2 % (0-6); Hematocrit 39.4 % (33.0-51.0); Hemoglobin 11.5 g/dL (11.5-16.0); IMMATURE GRAN ABSOLUTE AUTO 0.04 K/mm3 (0.00-0.10); IMMATURE GRAN PERCENT AUTO 1 % (0-1); LYMPHOCYTES ABSOLUTE AUTO 1.75 K/mm3 (0.84-5.20); LYMPHOCYTES PERCENT AUTO 20 % (21-46); MONOCYTES ABSOLUTE AUTO 0.51 K/mm3 (0.16-1.47); MONOCYTES PERCENT AUTO 6 % (4-13); Mean Corpuscular HGB 24.2 pg (26.0-34.0); Mean Corpuscular HGB Conc 29.2 g/dL (31.5-36.5); Mean Corpuscular Volume 83 fL (80-100); Mean Platelet Volume 10.1 fL (9.1-12.4); NEUTROPHILS ABSOLUTE AUTO 6.11 K/mm3 (1.96-9.15); NEUTROPHILS PERCENT AUTO 71 % (41-73); Platelet Count 231 K/mm3 (150-400); RDW Coefficient Variation 15.6 % (11.7-14.2); Red Blood Cell Count 4.76 M/mm3 (3.80-5.20); White Blood Cell Count 8.61 K/mm3 (4.00-11.30)
[2024-11-11 17:59] LABS: Albumin, Blood 3.2 g/dL (3.4-5.0); Albumin/Globulin Ratio 0.7 (0.8-1.8); Bilirubin, Total 0.3 mg/dL (0.1-1.0); Bun/Creatinine Ratio 39.2 (12.0-20.0); Calcium, Blood 9.3 mg/dL (8.5-10.1); Creatinine, Blood 0.64 mg/dL (0.40-1.00); Globulin, Blood 4.7 g/dL (2.2-4.0); Potassium, Blood 4.3 mmol/L (3.5-5.5); Total Protein, Blood 7.9 g/dL (6.4-8.2)
[2024-11-11] MEDS ORDERED: Albuterol 2.5 MG/3 ML VIAL INH SCH (20:50)
[2024-11-11 21:02] LABS: Influenza A, PCR NEGATIVE (NEGATIVE); Influenza B, PCR NEGATIVE (NEGATIVE); Resp Syncytial Virus, PCR NEGATIVE (NEGATIVE); SARS-Cov-2 (COVID-19) PCR, MMC NEGATIVE (NEGATIVE)
[2024-11-11] MEDS ORDERED: BUDESONIDE-FO10.2 G2 INH (21:49)
[2024-11-11] MEDS ORDERED: ALEVAZOL56.7 G1 TOP (21:49)
== END 2024-11-11 22:10 | disposition home or self-care (01) ==
LOC: ER 15:57
PROVIDERS: Emergency Medicine
DX: R06.2 Wheezing (principal); B49 Unspecified mycosis; Z79.01 Long term (current) use of anticoagulants; Z79.899 Other long term (current) drug therapy; Z79.2 Long term (current) use of antibiotics
CPT/HCPCS: 0241U; 71045; 80053; 83880; 84484; 85025; 93005; 93010; 94640; 99285-25